=== PATIENT | male | born 1970 | race Caucasian/White ===

== ENCOUNTER → 2018-04-01 | Outpatient (CLI) | payer MEDICAID, OTHER ==
[2018-04-01 12:55] LABS: HEMATOCRIT 36.4 % (42.0-52.0); HEMOGLOBIN 11.6 g/dl (13.5-17.5); MEAN CORPUSCULAR HEMOGLOBIN 28.3 pg (27.0-33.0); MEAN CORPUSCULAR HGB CONC 31.9 g/dl (32.0-36.5); MEAN CORPUSCULAR VOLUME 88.8 fl (80.0-96.0); PLATELET COUNT, AUTOMATED 373 10^3/uL (150-450); WHITE BLOOD COUNT 9.9 10^3/uL (4.0-10.0)
[2018-04-01 13:23] LABS: ALBUMIN 2.9 GM/DL (3.2-5.2); ALBUMIN/GLOBULIN RATIO 0.81 (1.00-1.93); ALKALINE PHOSPHATASE 99 U/L (45-117); ALT/SGPT 15 U/L (12-78); ANION GAP 5 MEQ/L (8-16); AST/SGOT 11 U/L (7-37); BILIRUBIN,TOTAL 0.1 MG/DL (0.2-1.0); BLOOD UREA NITROGEN 14 MG/DL (7-18); CALCIUM LEVEL 8.4 MG/DL (8.5-10.1); CARBON DIOXIDE LEVEL 32 MEQ/L (21-32); CHLORIDE LEVEL 103 MEQ/L (98-107); CREATININE FOR GFR 0.86 MG/DL (0.70-1.30); GLOMERULAR FILTRATION RATE > 60.0 (>60); GLUCOSE, FASTING 72 MG/DL (70-100); POTASSIUM SERUM 4.7 MEQ/L (3.5-5.1); SODIUM LEVEL 140 MEQ/L (136-145); TOTAL PROTEIN 6.5 GM/DL (6.4-8.2)
[2018-04-01 13:39] LABS: HEPATITIS B SURFACE ANTIGEN NEGATIVE (NEGATIVE)
[2018-04-01 14:07] LABS: HEPATITIS C VIRUS ABY INDEX 0.1 INDEX (<0.8); HIV 1&2 SCREEN CENTAUR NEGATIVE (NEGATIVE)
[2018-04-01 14:19] LABS: CHLAMYDIA DNA AMPLIFICATION NEGATIVE (NEGATIVE); GC DNA AMPLIFICATION NEGATIVE (NEGATIVE)
== END ==
LOC: M EKG 11:56
DX: F11.20 Opioid dependence, uncomplicated (principal); R00.1 Bradycardia, unspecified
CPT/HCPCS: 93005

== ENCOUNTER 2018-06-14 11:02 | Emergency (ER) | payer MEDICAID, OTHER ==
[~2018-06-14] VITALS: Ht 185.4 cm; Wt 89.1 kg
[~2018-06-14 11:02] MED LIST: ABIL1TAB11 PO; AMIT10TA PO; ARIP1TAB6 PO; ATOR1TAB21 PO; AVEL1TAB3 PO; BUSP1TAB PO; CLOB0.0548 TOP; EFFE150C2 PO; ERYT25CAEC PO; FAMO1TAB25 PO; FAMO20TA PO; HYDR25TAB PO; IBUP80TA PO; LEVA750T7 PO; LEVO500T3 PO; LISI-538 PO; LISI40TA PO; LYRI150C PO; LYRI200C PO; METH10TA2 PO; METO25TAB PO; NEUR800T PO; NICO2GUM8 PO; PEPC1TAB5 PO; PRIL20CA9 PO; PROZ20CA11 PO; REME30TA PO; RISP1TAB42 PO; SERT-138 PO; SUBO2MIS SL; SUBO8MIS SL; TRAZ-160 PO; VENL150C43 PO; VENL75CA47 PO; ZEST1TAB7 PO; ZOFR4TAB14 SL
[2018-06-14] MEDS ORDERED: EFFE150C2 (11:26)
[2018-06-14] MEDS ORDERED: LISI40TA (11:26)
[2018-06-14] MEDS ORDERED: GABA800T4 (11:26)
[2018-06-14] MEDS ORDERED: GABAPENTIN 400 MG CAP PO ONE (13:00)
[2018-06-14] MEDS ORDERED: PREGABALIN 100 MG CAP (LYRICA) PO ONE (13:00)
[2018-06-14] MEDS ORDERED: LYRI200C PO (13:07)
[2018-06-14] MEDS ORDERED: GABA800T4 PO (13:07)
[2018-06-14 13:24] VITALS: BP 119/80
== END 2018-06-14 13:24 | disposition home or self-care (01) ==
LOC: M ED 11:02
DX: Z76.0 Encounter for issue of repeat prescription (principal); M79.7 Fibromyalgia; I10 Essential (primary) hypertension; E78.00 Pure hypercholesterolemia, unspecified; M19.90 Unspecified osteoarthritis, unspecified site; Z79.899 Other long term (current) drug therapy; F19.10 Other psychoactive substance abuse, uncomplicated; F10.10 Alcohol abuse, uncomplicated

== ENCOUNTER 2018-06-21 10:28 | Emergency (ER) | payer OTHER ==
[~2018-06-21] VITALS: Ht 185.4 cm; Wt 86.4 kg
[2018-06-21 10:28] VITALS: BP 138/83
[~2018-06-21 10:28] MED LIST changes: +EFFE150C2; +GABA800T4; +GABA800T4 PO; +LISI40TA
[2018-06-21] MEDS ORDERED: GABA800T4 PO (11:22)
[2018-06-21] MEDS ORDERED: LYRI200C PO (11:22)
[2018-06-21] MEDS ORDERED: EFFE150C2 PO (11:22)
== END 2018-06-21 11:26 | disposition home or self-care (01) ==
LOC: M ED 10:28
DX: M79.7 Fibromyalgia (principal); Z76.0 Encounter for issue of repeat prescription

== ENCOUNTER 2018-06-28 11:19 | Emergency (ER) | payer OTHER ==
[~2018-06-28] VITALS: Ht 185.4 cm; Wt 86.4 kg
[2018-06-28] MEDS ORDERED: LYRI200C PO (12:40)
[2018-06-28] MEDS ORDERED: EFFE150C2 PO (12:40)
[2018-06-28] MEDS ORDERED: NEUR800T PO (12:40)
[2018-06-28 12:53] VITALS: BP 103/69
== END 2018-06-28 12:55 | disposition home or self-care (01) ==
LOC: M ED 11:19
DX: Z76.0 Encounter for issue of repeat prescription (principal); F32.9 Major depressive disorder, single episode, unspecified; F41.9 Anxiety disorder, unspecified; M79.7 Fibromyalgia; M19.90 Unspecified osteoarthritis, unspecified site; I10 Essential (primary) hypertension; M79.601 Pain in right arm; G89.29 Other chronic pain; F17.200 Nicotine dependence, unspecified, uncomplicated; Z79.899 Other long term (current) drug therapy

== ENCOUNTER 2018-07-27 22:34 | Emergency (ER) | payer OTHER ==
[~2018-07-27] VITALS: Ht 185.4 cm; Wt 89.1 kg
[2018-07-27] MEDS ORDERED: KETOROLAC TROMETHAMINE 10 MG TAB PO ONE (23:15)
[2018-07-28] MEDS ORDERED: KETO10TAB PO (00:08)
[2018-07-28 00:32] VITALS: BP 108/72
--- NOTE | 2018-07-28 01:27 | REP ---
Clinical: Trauma/fall . Technique: AP, lateral, bilateral oblique, and coned-down views. Findings: Alignment and lordosis is maintained. The vertebral bodies including transverse process and spinous processes are intact and normal. There is no evidence for acute fracture / compression injury or subluxation. No evidence for spondylolysis or spondylolisthesis. Mild degenerative changes include subtle endplate sclerosis and minimal anterior osteophyte formation. Mild disc space narrowing at L5-S1 is also suggested. Impression: No acute fracture / compression injury or subluxation. Mild degenerative changes. Electronically Signed by Niranjan Pugh MD 07/28/2018 01:18 A
--- NOTE | 2018-07-28 01:30 | REP ---
Clinical: Trauma. Technique: Frontal view of the chest with four views of the right hemithorax. Findings: Frontal view of the chest demonstrates no acute cardiopulmonary process. Multiple views of the right hemithorax demonstrates no obvious acute rib fracture or pathology. Impression: No obvious right rib fracture. Electronically Signed by Niranjan Pugh MD 07/28/2018 01:22 A
== END 2018-07-28 00:40 | disposition home or self-care (01) ==
LOC: M ED 22:34
DX: S20.221A Contusion of right back wall of thorax, initial encounter (principal); W18.2XXA Fall in (into) shower or empty bathtub, initial encounter; Y92.012 Bathroom of single-family (private) house as the place of occurrence of the external cause; I10 Essential (primary) hypertension; F33.9 Major depressive disorder, recurrent, unspecified; F41.9 Anxiety disorder, unspecified; M19.90 Unspecified osteoarthritis, unspecified site; K21.9 Gastro-esophageal reflux disease without esophagitis; Z79.899 Other long term (current) drug therapy; Z79.890 Hormone replacement therapy

== ENCOUNTER 2018-10-20 11:14 | Emergency (ER) | payer OTHER ==
[~2018-10-20] VITALS: Ht 185.4 cm; Wt 90.9 kg
[~2018-10-20 11:14] MED LIST changes: +AZIT-12 PO; +HYDR-2541 PO; -HYDR25TAB PO; +KETO10TAB PO; +METO-346 PO; +METO1TAB63 PO; -METO25TAB PO; +PRED20TA PO; -TRAZ-160 PO; +TRAZ-252 PO
[2018-10-20 11:15] VITALS: BP 122/75
[2018-10-20] MEDS ORDERED: DULO1CAP2 PO (11:29)
[2018-10-20] MEDS ORDERED: RISP0.5T3 (11:29)
[2018-10-20] MEDS ORDERED: LYRI150C PO (11:29)
[2018-10-20] MEDS ORDERED: PREG100CA PO (11:32)
== END 2018-10-20 11:40 | disposition home or self-care (01) ==
LOC: M ED 11:14
DX: Z76.0 Encounter for issue of repeat prescription (principal); G89.29 Other chronic pain; I10 Essential (primary) hypertension; K21.9 Gastro-esophageal reflux disease without esophagitis; M79.7 Fibromyalgia; Z79.899 Other long term (current) drug therapy; Z79.891 Long term (current) use of opiate analgesic

== ENCOUNTER 2018-11-06 12:42 | Inpatient (IN) | payer OTHER ==
[~2018-11-06] VITALS: Ht 185.4 cm; Wt 95.0 kg
[~2018-11-06 12:42] MED LIST changes: +DULO1CAP2 PO; -EFFE150C2; -LISI40TA; +PREG100CA PO; +RISP0.5T3
[2018-11-06 13:23] LABS: HEMATOCRIT 39.6 % (42.0-52.0); HEMOGLOBIN 12.7 g/dl (13.5-17.5); MEAN CORPUSCULAR HEMOGLOBIN 27.8 pg (27.0-33.0); MEAN CORPUSCULAR HGB CONC 32.1 g/dl (32.0-36.5); MEAN CORPUSCULAR VOLUME 86.7 fl (80.0-96.0); PLATELET COUNT, AUTOMATED 380 10^3/uL (150-450); RED BLOOD COUNT 4.57 10^6/uL (4.30-6.10); WHITE BLOOD COUNT 6.6 10^3/uL (4.0-10.0)
[2018-11-06 13:45] LABS: AMPHETAMINES LEVEL URINE NEGATIVE (NEGATIVE); BARBITURATES URINE NEGATIVE (NEGATIVE); BENZODIAZEPINES URINE NEGATIVE (NEGATIVE); CANNABINOIDS URINE POSITIVE (NEGATIVE); COCAINE METABOLITE URINE POSITIVE (NEGATIVE); METHADONE URINE POSITIVE (NEGATIVE); OPIATES URINE NEGATIVE (NEGATIVE); PHENCYCLIDINE URINE NEGATIVE (NEGATIVE)
[2018-11-06 13:55] LABS: ACETAMINOPHEN LEVEL < 2.0 UG/ML (10.0-30.0); ALBUMIN 3.2 GM/DL (3.2-5.2); ALT/SGPT 19 U/L (12-78); BILIRUBIN,DIRECT 0.1 MG/DL (0.0-0.2); BILIRUBIN,TOTAL 0.4 MG/DL (0.2-1.0); BLOOD UREA NITROGEN 12 MG/DL (7-18); CALCIUM LEVEL 8.2 MG/DL (8.5-10.1); CARBON DIOXIDE LEVEL 29 MEQ/L (21-32); CHLORIDE LEVEL 107 MEQ/L (98-107); CREATININE FOR GFR 0.94 MG/DL (0.70-1.30); ETHYL ALCOHOL (ETHANOL) < 0.003 % (0.000-0.010); GLOMERULAR FILTRATION RATE > 60.0 (>60); GLUCOSE, FASTING 90 MG/DL (70-100); POTASSIUM SERUM 4.2 MEQ/L (3.5-5.1); SALICYLATE LEVEL 3.4 MG/DL (5.0-30.0); SODIUM LEVEL 141 MEQ/L (136-145); THYROID STIMULATING HORMONE 0.297 uIU/ML (0.358-3.740); TOTAL PROTEIN 6.8 GM/DL (6.4-8.2)
[2018-11-06] MEDS ORDERED: PREGABALIN 75 MG CAP(LYRICA) PO ONE ×2 (14:00→21:00)
[2018-11-06] MEDS ORDERED: GABAPENTIN 400 MG CAP PO ONE (14:00)
[2018-11-06] MEDS ORDERED: MAALOX 30 ML SUSP *UDC PO PRN ×2 (14:30→14:45)
[2018-11-06] MEDS ORDERED: traZODone 50 MG TAB PO PRN ×2 (14:30→14:45)
[2018-11-06] MEDS ORDERED: MOM 30ML SUSPENSION UDC PO PRN ×2 (14:30→14:45)
[2018-11-06] MEDS ORDERED: ACETAMINOPHEN TAB 650MG DOSE (2X325MG) PO PRN (14:45)
[2018-11-06] MEDS ORDERED: GABA600T4 PO (15:11)
[2018-11-06] MEDS ORDERED: METH10CO PO (15:11)
[2018-11-06] MEDS: NICOTINE 21MG/24HR 1 EA TRANSDERMAL TD SCH (18:07)
[2018-11-06] MEDS: GABAPENTIN 300 MG CAP PO SCH (20:01)
[2018-11-06] MEDS: ACETAMINOPHEN TAB 650MG DOSE (2X325MG) PO PRN (21:42)
[2018-11-07 06:56] VITALS: BP 104/78
[2018-11-07] MEDS: NICOTINE 21MG/24HR 1 EA TRANSDERMAL TD SCH (08:18)
[2018-11-07] MEDS: VENLAFAXINE **XR** 75MG CAPSULE PO SCH (08:18)
[2018-11-07] MEDS: LISINOPRIL 40 MG TAB PO SCH (08:18)
[2018-11-07] MEDS: GABAPENTIN 300 MG CAP PO SCH ×3 (08:18→20:27)
[2018-11-07] MEDS ORDERED: PREGABALIN 75 MG CAP(LYRICA) PO SCH ×2 (09:00→18:00)
[2018-11-07] MEDS: METHADONE 10 MG TAB (S0109) PO SCH (11:38)
--- NOTE | 2018-11-07 13:03 | HPEPDOC ---
General Date of Admission Nov 06, 2018 at 14:30 Date of Service: Nov 07, 2018 Attending Physician: FARA GARDNER MD Chief Complaint The patient is a 47-year-old male admitted with a reason for visit of Unspecified Depressive Disorder. Source: Patient Exam Limitations: No limitations Timing/Duration: Other Severity: Other (not applicable) Associated Symptoms: Other History of Present Illness This is a 47 years old white male with past medical history of fibromyalgia, osteoarthritis, degenerative joint disease of upper spine, hypertension, admitted to inpatient medical health unit with chief complaints of severe depression, suicidal ideations. Patient offers no medical complaints. No chest pain, no shortness of breath, no nausea, vomiting, no diarrhea no respiratory distress. No urinary problems, etc. Home Medications Scheduled Gabapentin (Gabapentin) 600 Mg Tablet, 600 MG PO TID, (Reported) Lisinopril (Lisinopril) 40 Mg Tab, 40 MG PO DAILY, (Reported) Methadone HCl (Methadone HCl) 10 Mg/1 Ml Oral.conc, 175 MG PO DAILY, (Reported) Pregabalin (Lyrica) 150 Mg Capsule, 150 MG PO TID, (Reported) Venlafaxine HCl (Effexor Xr) 150 Mg Cap, 300 MG PO DAILY, (Reported) Allergies Coded Allergies: No Known Drug Allergies (Verified Allergy, Unknown, 10/10/18) Past Medical History Medical History Fibromyalgia, osteoarthritis, DJD of spine, hypertension Surgical History Left inguinal hernia repair, and right carpal tunnel syndrome repair Family History Significant Family History: Other (. Mother of heart attack in 50s) Social History * Smoker: less than 1 pack/day Alcohol: other (stopped drinking alcohol some time ago) Drugs: cocaine, heroin A-FIB/CHADSVASC A-FIB History Current/History of A-Fib/PAF?: No Review of Systems Constitutional: Denies: Chills, Fever, Malaise, Night Sweats, Weakness, Fatigue, Weight Loss, Lethargy, Other Eyes: Denies: Pain, Vision change, Conjunctivae inflammation, Eyelid inflammation, Redness, Other ENT: Denies: Head Aches, Ear Pain, Dysphagia, Sinus Congestion, Post Nasal Drip, Sore Throat, Epistaxis, Other Symptoms Skin: Denies: Rash, Lesions, Jaundice, Bruising, Itching, Dry, Breakdown, Nail Changes, Other Pulmonary: Denies: Dyspnea, Cough, Pleuritic Chest Pain, Other Symptoms Cardiovascular: Denies: Chest Pain, Palpitations, Orthopnea, Paroxysmal Noc. Dyspnea, Edema, Lt Headedness, Other Symptoms Gastrointestinal: Denies: Nausea, Vomiting, Abdominal Pain, Diarrhea, Constipation, Melena, Hematochezia, Other Symptoms Genitourinary: Denies: Dysuria, Frequency, Incontinence, Hematuria, Retention, Other Symptoms Hematologic: Denies: Bruising, Bleeding Excessively, Petecchia, Purpura, Enlarged Lymph Nodes, Other Hematologic Endocrine: Denies: Polydipsia, Polyphagia, Polyuria, Heat Intolerance, Cold Intolerance, Other Endocrine Sx Musculoskeletal: Denies: Neck Pain, Back Pain, Shoulder Pain, Arm Pain, Hand Pain, Leg Pain, Foot Pain, Joint Pain, Muscle Pain, Spasms, Other Symptoms Neurological: Denies: Weakness, Numbness, Incoordination, Change in speech, Confusion, Seizures, Other Symptoms Physical Examination General Exam: Positive: Alert, Cooperative Eye Exam: Positive: PERRLA, Conjunctiva & lids normal ENT Exam: Positive: Atraumatic, Mucous membr. moist/pink Neck Exam: Positive: Supple Chest Exam: Positive: Normal air movement Heart Exam: Positive: Rate Normal, Normal S1, Normal S2 Abdomen Exam: Positive: Normal bowel sounds, Soft Extremity Exam: Positive: Normal pulses Skin Exam: Positive: Nl turgor and temperature Neuro Exam: Positive: Normal Gait, Normal Speech, Strength at 5/5 X4 ext, Normal Tone, Cranial Nerves 3-12 NL Psych Exam: Positive: Oriented x 3, Other (. Depressed mood) Vital Signs Vital Signs Date Time Temp Pulse Resp B/P (MAP) Pulse Ox O2 Delivery O2 Flow Rate FiO2 11/07/18 06:56 98.1 72 12 104/78 (87) 11/06/18 16:07 100 Room Air Laboratory Data Labs 24H Laboratory Tests 2 11/06/18 13:08: Nucleated Red Blood Cells % (auto) 0.0, Anion Gap 5L, Glomerular Filtration Rate > 60.0, Calcium Level 8.2L, Aspartate Amino Transf (AST/SGOT) 25, Alanine Aminotransferase (ALT/SGPT) 19, Alkaline Phosphatase 97, Total Bilirubin 0.4, Direct Bilirubin 0.1, Total Protein 6.8, Albumin 3.2, Albumin/Globulin Ratio 0.89L, Thyroid Stimulating Hormone (TSH) 0.297L, Salicylates Level 3.4L, Urine A mphetamines Screen NEGATIVE, Urine Benzodiazepines Screen NEGATIVE, Urine Opiates Screen NEGATIVE, Urine Methadone Screen POSITIVEH, Acetaminophen Level < 2.0L, Urine Barbiturates Screen NEGATIVE, Urine Phencyclidine Screen NEGATIVE, Urine Cocaine Metabolite Screen POSITIVEH, Urine Cannabinoids Screen POSITIVEH, Ethyl Alcohol Level < 0.003 CBC/BMP Laboratory Tests 11/06/18 13:08 Red Blood Count 4.57, Mean Corpuscular Volume 86.7, Mean Corpuscular Hemoglobin 27.8, Mean Corpuscular Hemoglobin Concent 32.1, Red Cell Distribution Width 13.7 Problems (1) Suicidal ideation Status: Acute Problem Text: [facility] suicidal ideations History of severe depressions and feels guilty about not caring taken care of his son was 14 years old Further treatment and management of depression as per psychiatry Will recommend baseline EKG as best as patient is on methadone to monitor QTc interval Toxicology positive for methadone, cocaine and canniboids (2) Depression Status: Acute Problem Text: As above (3) Fibromyalgia Status: Chronic Problem Text: Clinically stable, asymptomatic in no apparent distress Continue close observation All the lab work is essentially within normal limits (4) Osteoarthritis Status: Acute Problem Text: Stable Plan / VTE VTE Prophylaxis Ordered?: No VTE Exclusion Mechanical Proph: Low Risk for VTE FARA GARDNER MD Nov 07, 2018 13:03
[2018-11-07] MEDS: PREGABALIN 75 MG CAP(LYRICA) PO SCH ×2 (15:49→20:27)
[2018-11-07 18:21] VITALS: BP 113/64
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
[2018-11-07] MEDS: PRAZOSIN 1 MG CAP PO SCH (20:28)
[2018-11-08] MEDS: ACETAMINOPHEN TAB 650MG DOSE (2X325MG) PO PRN (05:42)
[2018-11-08] MEDS: GABAPENTIN 300 MG CAP PO SCH ×3 (06:04→17:39)
[2018-11-08] MEDS: PREGABALIN 75 MG CAP(LYRICA) PO SCH ×3 (06:04→17:39)
[2018-11-08 06:37] VITALS: BP 120/70
--- NOTE | 2018-11-08 07:49 | ECGEPIP ---
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
[2018-11-08] MEDS: METHADONE 10 MG TAB (S0109) PO SCH (09:51)
[2018-11-08] MEDS: LISINOPRIL 40 MG TAB PO SCH (09:55)
[2018-11-08] MEDS: NICOTINE 21MG/24HR 1 EA TRANSDERMAL TD SCH (09:55)
[2018-11-08] MEDS: VENLAFAXINE **XR** 75MG CAPSULE PO SCH (09:56)
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
--- NOTE | 2018-11-08 17:12 | MHIPNPDOC ---
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 Patient reported symptoms consistent for quite some time, but no recent treatment prior to his admission. Interval History The patient is met with today. He describes the Wellbutrin as fairly helpful for soothing his depression and that he's become much more active and engaged with others. He was found playing cards with others in the break room, attending groups regularly, exhibiting much social and interactive affect. He feels confident about returning home soon. He reports no side effects with the Wellbutrin. Review Of Systems patient denies any palpitations, chest pain, agitation, anxiety, tremors or other side effects related to the Wellbutrin. Psychotherapy Psychoeducation related to depression as well as depression treatment focusing on patient's strengths, 16 minutes of psychotherapy completed in a supportive manner with beneficial result. Vital Signs Reviewed. Mental Status Examination General: Well dressed with good hygiene Speech: Spontaneous and fluid Thought processes: Linear and logical MSK: Smooth and coordinated gait, no signs of tremors or involuntary orofacial movements Thought content: Future orientated Abstract reasoning, and computation: Intact Description of associations: Intact Description of abnormal or psychotic thoughts: Denies any suicidal or homicidal ideation. Denies any auditory or visual hallucinations. Does not appear to be responding to internal stimuli. Does not appear to be endorsing any bizarre or paranoid ideation. Judgment: fair Insight: fair Orientation: Alert and orientated 3 Cognition: Grossly normal Recent and remote memory: Intact Attention span and concentration: Intact Fund of knowledge: Adequate Mood: "okay" Affect: Euthymic with a full range Diagnoses MDD,moderate,recurrent, in partial remission: improving Assessment and Plan The patient a 23 year old man with a history of depression presents with suicidal thoughts and a plan to shoot himself. Will discontinue sertraline at this time as it appears ineffective. We'll increase Wellbutrin to 300 mg daily. The patient will likely be discharged tomorrow pending improvement of his condition as his suicidal ideation has resolved and his depression has been fairly well treated. Chain of command meeting will commence tomorrow. Disposition The patient will need a further inpatient admission stay overnight in order to ensure a smooth transition with chain of command meeting and disposition planning at this time. Time Spent 30 minutes total [id number] time, 16 minutes psychotherapy time. Vital Signs Vital Signs Date Time Temp Pulse Resp B/P (MAP) Pulse Ox O2 Delivery O2 Flow Rate FiO2 11/08/18 06:37 98.3 60 16 120/70 (87) 11/06/18 16:07 100 Room Air Current Medications Current Medications Acetaminophen (Tylenol Tab) 650 mg Q6HP PRN PO HEADACHE or DISCOMFORT Last administered on 11/08/18at 05:42; Start 11/06/18 at 14:30 Acetaminophen (Tylenol Tab) 650 mg Q6HP PRN PO HEADACHE or DISCOMFORT; Start 11/06/18 at 14:45; Status UNV Al Hydrox/Mg Hydrox/Simethicone (Mylanta) 30 ml Q4HP PRN PO HEARTBURN /INDIGESTION; Start 11/06/18 at 14:30 Al Hydrox/Mg Hydrox/Simethicone (Mylanta) 30 ml Q4HP PRN PO HEARTBURN/INDIGESTION; Start 11/06/18 at 14:45; Status UNV Gabapentin (Neurontin) 600 mg TID PO Last administered on 11/08/18at 06:04; Start 11/06/18 at 21:00; Stop 11/08/18 at 14:16; Status DC Gabapentin (Neurontin) 600 mg TID@0700,1300,1800 PO Last administered on 11/08/18at 14:20; Start 11/08/18 at 13:00 Home Med (Med Rec Complete!) ASDIRECTED XX ; Start 11/06/18 at 15:15; Stop 11/06/18 at 15:27; Status DC Lisinopril (Prinivil) 40 mg DAILY PO Last administered on 11/08/18at 09:55; Start 11/07/18 at 09:00 Magnesium Hydroxide (Milk Of Magnesia) 30 ml DAILYPRN PRN PO CONSTIPATION; Start 11/06/18 at 14:30 Magnesium Hydroxide (Milk Of Magnesia) 30 ml DAILYPRN PRN PO CONSTIPATION; Start 11/06/18 at 14:45; Status UNV Methadone HCl (Dolophine) 175 mg DAILY PO Last administered on 11/08/18at 09:51; Start 11/07/18 at 09:00 Nicotine (Nicoderm Cq 21mg) 1 patch DAILY TD Last administered on 11/08/18 09:55; Start 11/06/18 at 09:00 Prazosin HCl (Minipress) 1 mg QHS PO Last administered on 11/07/18at 20:28; Start 11/07/18 at 21:00 Pregabalin (Lyrica) 150 mg BID@1600,2100 PO Last administered on 11/07/18at 20:27; Start 11/07/18 at 16:00; Stop 11/07/18 at 21:01; Status DC Pregabalin (Lyrica) 150 mg TID PO Last administered on 11/07/18at 10:33; Start 11/07/18 at 09:00; Stop 11/07/18 at 15:16; Status DC Pregabalin (Lyrica) 150 mg TID@0700,1300,1800 PO ; Start 11/07/18 at 18:00; Status Cancel Pregabalin (Lyrica) 150 mg TID@0700,1300,1800 PO Last administered on 11/08/18at 12:59; Start 11/08/18 at 07:00 Trazodone HCl (Desyrel) 50 mg QHSP PRN PO INSOMNIA Last administered on 11/06/18at 20:01; Start 11/06/18 at 14:30; Stop 11/07/18 at 19:14; Status DC Trazodone HCl (Desyrel) 50 mg QHSP PRN PO INSOMNIA; Start 11/06/18 at 14:45; Status UNV Venlafaxine HCl (Effexor Xr) 300 mg DAILY PO Last administered on 11/08/18at 09:56; Start 11/07/18 at 09:00 Allergies Coded Allergies: No Known Drug Allergies (Verified Allergy, Unknown, 10/10/18) ADDI ESCAMILLA DO Nov 08, 2018 17:12
[2018-11-08 18:00] VITALS: BP 109/53
[2018-11-08 20:09] VITALS: BP 122/79
[2018-11-08] MEDS: PRAZOSIN 1 MG CAP PO SCH (20:09)
[2018-11-09 06:00] VITALS: BP 108/60
[2018-11-09] MEDS: GABAPENTIN 300 MG CAP PO SCH ×2 (06:00→12:58)
[2018-11-09] MEDS: PREGABALIN 75 MG CAP(LYRICA) PO SCH ×2 (06:00→12:58)
[2018-11-09] MEDS: METHADONE 10 MG TAB (S0109) PO SCH (08:09)
[2018-11-09] MEDS: VENLAFAXINE **XR** 75MG CAPSULE PO SCH (08:12)
[2018-11-09] MEDS: LISINOPRIL 40 MG TAB PO SCH (08:13)
[2018-11-09] MEDS: NICOTINE 21MG/24HR 1 EA TRANSDERMAL TD SCH (08:13)
[2018-11-09] MEDS ORDERED: GABA600T4 PO (10:55)
[2018-11-09] MEDS ORDERED: LYRI150C PO (10:55)
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
== END 2018-11-09 13:50 | disposition home or self-care (01) | DRG 755 ==
LOC: M ED 12:42 → M ED INP 14:30 → M PSY 16:23
PROVIDERS: ADMIT Psychiatry & Neurology Psychiatry; ATTEND Psychiatry & Neurology Addiction Medicine
DX: F43.10 Post-traumatic stress disorder, unspecified (principal); I10 Essential (primary) hypertension; R45.851 Suicidal ideations; F12.90 Cannabis use, unspecified, uncomplicated; F17.200 Nicotine dependence, unspecified, uncomplicated; F14.90 Cocaine use, unspecified, uncomplicated; Z79.899 Other long term (current) drug therapy; M79.7 Fibromyalgia; M19.90 Unspecified osteoarthritis, unspecified site

== ENCOUNTER 2018-11-10 08:20 | Emergency (ER) | payer OTHER ==
[~2018-11-10] VITALS: Ht 185.4 cm; Wt 88.0 kg
[2018-11-10 08:20] VITALS: BP 115/75
[~2018-11-10 08:20] MED LIST changes: -DULO1CAP2 PO; +DULO1CAP5 PO; +GABA600T4 PO; +METH10CO PO
== END 2018-11-10 08:58 | disposition home or self-care (01) ==
LOC: M ED 08:20
DX: Z76.0 Encounter for issue of repeat prescription (principal); Z79.899 Other long term (current) drug therapy

== ENCOUNTER 2018-11-14 18:22 | Emergency (ER) | payer OTHER ==
[~2018-11-14] VITALS: Ht 185.4 cm; Wt 91.8 kg
[2018-11-14] MEDS ORDERED: LYRI150C PO (21:56)
[2018-11-14 21:59] VITALS: BP 112/68
== END 2018-11-14 22:05 | disposition home or self-care (01) ==
LOC: M ED 18:22
DX: Z76.0 Encounter for issue of repeat prescription (principal); Z72.0 Tobacco use; Z79.899 Other long term (current) drug therapy

== ENCOUNTER 2019-01-04 04:46 | Inpatient (IN) | payer MEDICAID, OTHER ==
[~2019-01-04] VITALS: Ht 185.4 cm; Wt 95.3 kg
[2019-01-04 05:44] LABS: HEMATOCRIT 37.7 % (42.0-52.0); HEMOGLOBIN 12.5 g/dl (13.5-17.5); MEAN CORPUSCULAR HEMOGLOBIN 27.8 pg (27.0-33.0); MEAN CORPUSCULAR HGB CONC 33.2 g/dl (32.0-36.5); PLATELET COUNT, AUTOMATED 273 10^3/uL (150-450); RED BLOOD COUNT 4.49 10^6/uL (4.30-6.10); WHITE BLOOD COUNT 12.4 10^3/uL (4.0-10.0)
--- NOTE | 2019-01-04 05:45 | ECGEPIP ---
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
[2019-01-04 06:04] LABS: AMPHETAMINES LEVEL URINE NEGATIVE (NEGATIVE); BARBITURATES URINE NEGATIVE (NEGATIVE); BENZODIAZEPINES URINE NEGATIVE (NEGATIVE); CANNABINOIDS URINE NEGATIVE (NEGATIVE); COCAINE METABOLITE URINE POSITIVE (NEGATIVE); METHADONE URINE POSITIVE (NEGATIVE); OPIATES URINE NEGATIVE (NEGATIVE); PHENCYCLIDINE URINE NEGATIVE (NEGATIVE)
[2019-01-04 06:12] LABS: ACETAMINOPHEN LEVEL < 2.0 UG/ML (10.0-30.0); ALBUMIN 3.5 GM/DL (3.2-5.2); ALT/SGPT 18 U/L (12-78); BILIRUBIN,DIRECT 0.1 MG/DL (0.0-0.2); BILIRUBIN,TOTAL 0.5 MG/DL (0.2-1.0); BLOOD UREA NITROGEN 20 MG/DL (7-18); CALCIUM LEVEL 8.7 MG/DL (8.5-10.1); CARBON DIOXIDE LEVEL 25 MEQ/L (21-32); CHLORIDE LEVEL 107 MEQ/L (98-107); CREATININE FOR GFR 1.19 MG/DL (0.70-1.30); ETHYL ALCOHOL (ETHANOL) < 0.003 % (0.000-0.010); GLOMERULAR FILTRATION RATE > 60.0 (>56); GLUCOSE, FASTING 94 MG/DL (70-100); POTASSIUM SERUM 4.1 MEQ/L (3.5-5.1); SALICYLATE LEVEL 3.7 MG/DL (5.0-30.0); SODIUM LEVEL 140 MEQ/L (136-145); THYROID STIMULATING HORMONE 0.819 uIU/ML (0.358-3.740); TOTAL PROTEIN 7.3 GM/DL (6.4-8.2)
[2019-01-04] MEDS ORDERED: GABA600T4 PO (06:26)
[2019-01-04] MEDS ORDERED: TRAZ1TAB10 PO (06:26)
[2019-01-04] MEDS ORDERED: DOCU100C16 PO (06:26)
[2019-01-04] MEDS ORDERED: PRAZ1CAP PO (06:26)
[2019-01-04] MEDS ORDERED: [UNRECOGNIZED DRUG - CODE] MT (06:26)
[2019-01-04] MEDS ORDERED: PREG100CA PO (06:26)
[2019-01-04] MEDS ORDERED: RISP0.5T3 PO (06:26)
[2019-01-04] MEDS ORDERED: NARC1SPR (06:26)
[2019-01-04] MEDS: GABAPENTIN 300 MG CAP PO SCH ×3 (08:47→21:37)
[2019-01-04] MEDS ORDERED: PREGABALIN 100 MG CAP (LYRICA) PO SCH (09:00)
[2019-01-04] MEDS ORDERED: risperiDONE 0.5 MG TAB PO SCH (09:00)
[2019-01-04] MEDS ORDERED: LISINOPRIL 40 MG TAB PO SCH (09:00)
[2019-01-04] MEDS ORDERED: METHADONE 10 MG TAB (S0109) PO SCH (09:00)
[2019-01-04] MEDS ORDERED: VENLAFAXINE **XR** 75MG CAPSULE PO SCH (09:00)
[2019-01-04] MEDS ORDERED: DOCUSATE SODIUM 100 MG CAP PO PRN (17:30)
[2019-01-04] MEDS ORDERED: MOM 30ML SUSPENSION UDC PO PRN (17:30)
[2019-01-04] MEDS ORDERED: MAALOX 30 ML SUSP *UDC PO PRN (17:30)
[2019-01-04 19:52] VITALS: BP 118/73
[2019-01-04] MEDS ORDERED: PRAZOSIN 1 MG CAP PO SCH (21:00)
[2019-01-04 21:37] VITALS: BP 115/76
[2019-01-04] MEDS: risperiDONE 0.5 MG TAB PO SCH (21:37)
[2019-01-04] MEDS: PREGABALIN 100 MG CAP (LYRICA) PO SCH (21:37)
[2019-01-04] MEDS: traZODone 50 MG TAB PO PRN (21:37)
[2019-01-04] MEDS: PRAZOSIN 1 MG CAP PO SCH (21:37)
[2019-01-05 06:48] VITALS: BP 145/80
[2019-01-05] MEDS: NICOTINE 21MG/24HR 1 EA TRANSDERMAL TD SCH (08:24)
[2019-01-05] MEDS: PREGABALIN 100 MG CAP (LYRICA) PO SCH ×2 (08:24→13:45)
[2019-01-05] MEDS: risperiDONE 0.5 MG TAB PO SCH ×2 (08:24→20:05)
[2019-01-05] MEDS: LISINOPRIL 40 MG TAB PO SCH (08:25)
[2019-01-05] MEDS: GABAPENTIN 300 MG CAP PO SCH ×3 (08:25→17:46)
[2019-01-05] MEDS: VENLAFAXINE **XR** 75MG CAPSULE PO SCH (08:25)
[2019-01-05] MEDS: METHADONE 10 MG TAB (S0109) PO SCH (08:25)
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
[2019-01-05] MEDS: ACETAMINOPHEN TAB 650MG DOSE (2X325MG) PO PRN (17:47)
[2019-01-05 18:00] VITALS: BP 108/62
[2019-01-05] MEDS: PRAZOSIN 1 MG CAP PO SCH (20:04)
[2019-01-05] MEDS: traZODone 50 MG TAB PO PRN (20:05)
--- NOTE | 2019-01-05 21:16 | HPE ---
DATE OF ADMISSION: 01/05/2019 HISTORY OF PRESENT ILLNESS: This is a 48-year-old male with past medical history significant for chronic posttraumatic stress disorder (PTSD), opioid, cocaine, and tobacco abuse, suicidal ideation, severe depression, admitted to the inpatient mental health unit. Hospitalist service was consulted for management of chronic medical issues. Patient complains of chronic joint pain, especially the shoulder and elbows, due to fibromyalgia. He denies any fevers or chills, changes in appetite, changes in weight, ear pain, sore throat, dysphagia, odynophagia, changes in weight, changes in appetite, nausea, vomiting, abdominal pain, diarrhea, shortness of breath, chest pain, pressure, or tightness, lightheadedness, or dizziness. Denies any dysuria, urgency, frequency, upper or lower extremity numbness or tingling sensation. Denies any changes in bowel or bladder habits. PAST MEDICAL HISTORY: 1. Fibromyalgia. 2. Anxiety. 3. Depression. 4. Suicidal ideation. 5. Opiate abuse. 6. Reflux. 7. Hypertension. 8. Osteoarthritis. 9. Anxiety. 10. Methadone per [facility] with history of polysubstance abuse. 11. Chronic neck and back pain 12. Dyslipidemia. PAST SURGICAL HISTORY: 1. Right carpal tunnel release. 2. Hernia repair. REVIEW OF SYSTEMS: Per history of present illness (HPI). A 12-point system otherwise negative. SOCIAL HISTORY: Polysubstance abuse. Quit alcohol in 2016. Patient had used heroin and cocaine in the past. Currently on methadone. He has been using crystal methamphetamine as well as other intravenous (IV) drugs. 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 He has always lived in [place]. FAMILY HISTORY: Mother with depression. PHYSICAL EXAMINATION: Temperature 98.7, pulse 73, respiratory rate 12, blood pressure 145/80, 97% on room air. Generally, patient is awake, alert, oriented times three, answering questions appropriately. No respiratory distress. No use of respiratory accessory muscles. Tongue is midline. No cervical lymphadenopathy or thyromegaly. No jugular venous distention. Patient has point tenderness at multiple joints in the shoulder, elbows, knees, wrist. Lungs are clear to auscultation. No wheezes, rales, or rhonchi. Air entry is equal bilaterally. Heart: S1, S2, sinus rhythm. No murmurs, rubs, or gallops. Abdomen is soft, nontender, nondistended. Positive bowel sounds times four quadrants. No rebound, guarding, or hepatosplenomegaly. Extremities have No clubbing, cyanosis, or any pitting edema. White count 12.4, hemoglobin 12.5, hematocrit 37.7, platelet count 273. Sodium 140, potassium 4.1, chloride 107, bicarbonate 25, BUN 20, creatinine 1.19, glucose of 94. Total bilirubin 0.5, direct bilirubin 0.1, AST 21, ALT 18, alkaline phosphatase 110. TSH 0.819. EKG 01/04/2019 at 5:05 a.m.: Sinus rhythm, ventricular rate of 80. Nonspecific T-wave abnormalities, similar to 11/07/2018. QRS duration 102, QT3 of 79, QTC 439. ASSESSMENT AND PLAN: 1. Severe depression with prior history of suicidal ideation. Defer management to psychiatrist. Baseline EKG has been reviewed. 2. Fibromyalgia. Outpatient followup. 3. Osteoarthritis, degenerative disc disease of the spine, on opioid narcotics. 4. Hypertension, currently stable, 105-118 systolic. No complaints of chest pain, pressure, tightness. Currently on lisinopril 40 mg daily. 5. Active tobacco abuse, on nicotine patch daily.
[2019-01-06 06:51] VITALS: BP 108/70
[2019-01-06] MEDS: GABAPENTIN 300 MG CAP PO SCH ×3 (07:59→18:01)
[2019-01-06] MEDS: PREGABALIN 100 MG CAP (LYRICA) PO SCH ×2 (08:00→14:00)
[2019-01-06] MEDS: VENLAFAXINE **XR** 75MG CAPSULE PO SCH (08:00)
[2019-01-06] MEDS: LISINOPRIL 40 MG TAB PO SCH (08:00)
[2019-01-06] MEDS: risperiDONE 0.5 MG TAB PO SCH ×2 (08:00→20:00)
[2019-01-06] MEDS: NICOTINE 21MG/24HR 1 EA TRANSDERMAL TD SCH (08:00)
[2019-01-06] MEDS: METHADONE 10 MG TAB (S0109) PO SCH (08:01)
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
[2019-01-06 17:59] VITALS: BP 107/55
[2019-01-06] MEDS: OLANZapine ORAL DISINTEGRATING TAB 5MG PO PRN (19:53)
[2019-01-06] MEDS: traZODone 50 MG TAB PO PRN (20:00)
[2019-01-07 07:23] VITALS: BP 110/74
[2019-01-07] MEDS: risperiDONE 0.5 MG TAB PO SCH ×2 (08:14→20:40)
[2019-01-07] MEDS: GABAPENTIN 300 MG CAP PO SCH ×3 (08:14→17:16)
[2019-01-07] MEDS: METHADONE 10 MG TAB (S0109) PO SCH (08:14)
[2019-01-07] MEDS: PREGABALIN 100 MG CAP (LYRICA) PO SCH ×2 (08:14→13:45)
[2019-01-07] MEDS: VENLAFAXINE **XR** 75MG CAPSULE PO SCH (08:15)
[2019-01-07] MEDS: LISINOPRIL 40 MG TAB PO SCH (08:15)
[2019-01-07] MEDS: NICOTINE 21MG/24HR 1 EA TRANSDERMAL TD SCH (08:15)
[2019-01-07] MEDS: OLANZapine ORAL DISINTEGRATING TAB 5MG PO PRN ×3 (08:19→22:11)
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
[2019-01-07 18:01] VITALS: BP 110/75
[2019-01-07] MEDS: traZODone 50 MG TAB PO PRN (20:40)
[2019-01-07] MEDS: ACETAMINOPHEN TAB 650MG DOSE (2X325MG) PO PRN (22:11)
[2019-01-08 06:21] VITALS: BP 95/68
[2019-01-08] MEDS: VENLAFAXINE **XR** 75MG CAPSULE PO SCH (08:10)
[2019-01-08] MEDS: NICOTINE 21MG/24HR 1 EA TRANSDERMAL TD SCH (08:10)
[2019-01-08] MEDS: LISINOPRIL 40 MG TAB PO SCH (08:10)
[2019-01-08] MEDS: GABAPENTIN 300 MG CAP PO SCH ×3 (08:10→17:43)
[2019-01-08] MEDS: risperiDONE 0.5 MG TAB PO SCH ×2 (08:10→20:02)
[2019-01-08] MEDS: PREGABALIN 100 MG CAP (LYRICA) PO SCH ×2 (08:10→13:15)
[2019-01-08] MEDS: METHADONE 10 MG TAB (S0109) PO SCH (08:13)
[2019-01-08] MEDS: OLANZapine ORAL DISINTEGRATING TAB 5MG PO PRN ×3 (10:00→22:11)
[2019-01-08 17:46] VITALS: BP 110/75
[2019-01-08] MEDS: traZODone 50 MG TAB PO PRN (20:02)
[2019-01-09 06:50] VITALS: BP 131/84
[2019-01-09] MEDS: OLANZapine ORAL DISINTEGRATING TAB 5MG PO PRN ×3 (07:03→17:11)
[2019-01-09] MEDS: GABAPENTIN 300 MG CAP PO SCH ×3 (08:29→17:11)
[2019-01-09] MEDS: NICOTINE 21MG/24HR 1 EA TRANSDERMAL TD SCH (08:29)
[2019-01-09] MEDS: risperiDONE 0.5 MG TAB PO SCH ×2 (08:29→21:20)
[2019-01-09] MEDS: PREGABALIN 100 MG CAP (LYRICA) PO SCH ×2 (08:29→13:46)
[2019-01-09] MEDS: VENLAFAXINE **XR** 75MG CAPSULE PO SCH (08:29)
[2019-01-09] MEDS: METHADONE 10 MG TAB (S0109) PO SCH (08:30)
[2019-01-09] MEDS: LISINOPRIL 40 MG TAB PO SCH (08:30)
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
[2019-01-09 17:06] VITALS: BP 128/84
[2019-01-10 06:57] VITALS: BP 150/85
[2019-01-10] MEDS: risperiDONE 0.5 MG TAB PO SCH (08:07)
[2019-01-10] MEDS: VENLAFAXINE **XR** 75MG CAPSULE PO SCH (08:07)
[2019-01-10] MEDS: PREGABALIN 100 MG CAP (LYRICA) PO SCH (08:07)
[2019-01-10] MEDS: GABAPENTIN 300 MG CAP PO SCH (08:07)
[2019-01-10] MEDS: METHADONE 10 MG TAB (S0109) PO SCH (08:07)
[2019-01-10] MEDS: LISINOPRIL 40 MG TAB PO SCH (08:07)
[2019-01-10] MEDS: NICOTINE 21MG/24HR 1 EA TRANSDERMAL TD SCH (08:08)
[2019-01-10] MEDS: OLANZapine ORAL DISINTEGRATING TAB 5MG PO PRN (09:41)
[2019-01-10] MEDS ORDERED: GABA600T4 PO (10:51)
[2019-01-10] MEDS ORDERED: PREG100CA PO (10:51)
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
== END 2019-01-10 11:10 | disposition home or self-care (01) | DRG 754 ==
LOC: M ED 04:46 → M ED INP 17:27 → M PSY 19:40
PROVIDERS: ADMIT Psychiatry & Neurology Addiction Medicine; ATTEND Psychiatry & Neurology Addiction Medicine
DX: F32.9 Major depressive disorder, single episode, unspecified (principal); R45.850 Homicidal ideations; R45.851 Suicidal ideations; F11.90 Opioid use, unspecified, uncomplicated; F17.200 Nicotine dependence, unspecified, uncomplicated; F14.90 Cocaine use, unspecified, uncomplicated; F10.10 Alcohol abuse, uncomplicated; F43.10 Post-traumatic stress disorder, unspecified; Z79.899 Other long term (current) drug therapy; M79.7 Fibromyalgia; F41.9 Anxiety disorder, unspecified; K21.9 Gastro-esophageal reflux disease without esophagitis; I10 Essential (primary) hypertension; M19.90 Unspecified osteoarthritis, unspecified site; M54.2 Cervicalgia; E78.5 Hyperlipidemia, unspecified

== ENCOUNTER 2019-02-08 12:05 | Emergency (ER) | payer OTHER ==
[~2019-02-08] VITALS: Ht 185.4 cm; Wt 95.8 kg
[~2019-02-08 12:05] MED LIST changes: +DOCU100C16 PO; +NARC1SPR; +PRAZ1CAP PO; +RISP0.5T3 PO; +TRAZ1TAB10 PO; +[UNRECOGNIZED DRUG - CODE] MT
[2019-02-08] MEDS ORDERED: PREG100C (13:43)
[2019-02-08] MEDS ORDERED: PREG100CA PO ×2 (15:16→15:17)
[2019-02-08 15:25] VITALS: BP 122/79
== END 2019-02-08 15:28 | disposition home or self-care (01) ==
LOC: M ED 12:05
DX: Z76.0 Encounter for issue of repeat prescription (principal); I10 Essential (primary) hypertension; F41.9 Anxiety disorder, unspecified; F33.9 Major depressive disorder, recurrent, unspecified; M79.7 Fibromyalgia; M51.9 Unspecified thoracic, thoracolumbar and lumbosacral intervertebral disc disorder; F17.210 Nicotine dependence, cigarettes, uncomplicated; F11.11 Opioid abuse, in remission; Z79.899 Other long term (current) drug therapy

== ENCOUNTER 2019-02-13 12:47 | Emergency (ER) | payer OTHER ==
[~2019-02-13] VITALS: Ht 185.4 cm; Wt 96.3 kg
[~2019-02-13 12:47] MED LIST changes: +PREG100C
[2019-02-13 12:48] VITALS: BP 168/94
[2019-02-13] MEDS ORDERED: PREG100CA PO (13:37)
== END 2019-02-13 13:46 | disposition home or self-care (01) ==
LOC: M ED 12:47
DX: Z76.0 Encounter for issue of repeat prescription (principal); M79.7 Fibromyalgia; M19.90 Unspecified osteoarthritis, unspecified site; K21.9 Gastro-esophageal reflux disease without esophagitis; F33.9 Major depressive disorder, recurrent, unspecified; F17.200 Nicotine dependence, unspecified, uncomplicated; Z79.899 Other long term (current) drug therapy

== ENCOUNTER → 2019-02-17 | Outpatient (REF) | payer OTHER ==
[2019-02-22 14:07] LABS: CREATININE, URINE 111.6 mg/dL (20.0-300.0); METHADONE, URINE (GC/MS) 13485 ng/mL (Cutoff=100)
== END ==
LOC: M LAB REF 14:06
PROVIDERS: ATTEND Nurse Practitioner Family
DX: M79.7 Fibromyalgia (principal); M79.602 Pain in left arm

== ENCOUNTER → 2019-03-28 | Outpatient (CLI) | payer OTHER ==
--- NOTE | 2019-04-04 04:02 | ECWPNPC ---
PATIENT NAME: SOFIA SPICER : 1970 GENDER: MALE VISIT DATE: 03/28/2019 DISCHARGE DATE: 03/28/19 1611 VISIT LOCKED DATE TIME: PHYSICIAN: SEBASTIÁN CHUNG MD RESOURCE: SEBASTIÁN CHUNG MD REASON FOR APPOINTMENT 1. FIBRO HISTORY OF PRESENT ILLNESS PAIN SCREENING: PATIENT HAS A COMPLAINT OF ACUTE OR CHRONIC PAIN :YES 48 YEAR OLD MALE PATIENT WITH A HISTORY OF CHRONIC NECK AND LOW BACK PAIN. THE PATIENT DESCRIBES THE PAIN SHARP, STABBING, SHOOTING, DAILY, AND CONTINUOUS WITH A PAIN SCORE OF 6-8/10 DEPENDING ON PHYSICAL ACTIVITY. THE PATIENT STATES HIS PAIN IS MAINLY IN HIS NECK AND LOW BACK, WITH PAIN RADIATING DOWN HIS LEGS, BUT IS WORSE IN HIS RIGHT LEG. THE PATIENT STATES HIS PAIN IS WORSE AT NIGHT AND HIS MAIN CONCERN IS THE PAIN IN HIS NECK AND RIGHT SHOULDER AREAS. 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 PATIENT DENIES UNEXPLAINABLE WEIGHT LOSS, FEVER, CHILLS, NEW CHANGES ON HIS URINARY OR BOWEL CONTROL. FALL RISK SCREENING: SCREENING :NO FALLS REPORTED IN THE LAST YEAR CURRENT MEDICATIONS TAKING LYRICA 100 MG CAPSULE 1 CAPSULE ORALLY BID TAKING VENTOLIN HFA 108 (90 BASE) MCG/ACT AEROSOL SOLUTION 2 PUFFS NEEDED INHALATION EVERY 6 HRS TAKING LISINOPRIL 20 MG TABLET 1 TABLET ORALLY ONCE A DAY TAKING GABAPENTIN 400 MG CAPSULE 1 CAPSULE ORALLY THREE TIMES DAILY TAKING EFFEXOR XR 150 MG CAPSULE EXTENDED RELEASE 24 HOUR 2 CAPSULE WITH FOOD ORALLY ONCE A DAY TAKING RISPERIDONE 1 MG TABLET 1 TABLET ORALLY THREE TIMES DAILY TAKING METHADONE HCL DISKETS 185MG ORALLY DAILY MEDICATION LIST REVIEWED AND RECONCILED WITH THE PATIENT PAST MEDICAL HISTORY MAJOR DEPRESSION ANXIETY DISORDER DEPRESSION HYPERTENSION OSTEOARTHRITIS RHEUMATOID ARTHRITIS SUBSTANCE ABUSE - OPIODS FIBROMYALGIA DEGENERATIVE DISC DISEASE ALLERGIES N.K.D.A. SURGICAL HISTORY HERNIA REPAIR 2004 CARPAUL TUNNEL RELEASE 2010 FAMILY HISTORY MOTHER: FAMILY HX OF ALCOHOLISM, ARTHRITIS, DEPRESSION, HYPERTENSION, HIGH CHOLESTEROL, PSYCHIATRIC CARE, ALCOHOL RELATED LIVER CIRRHOSIS. SOCIAL HISTORY GENERAL: TOBACCO USE ARE YOU A:CURRENT SMOKER ARE YOU INTERESTED IN QUITTING?NOT READY TO QUIT COUNSELED THE PATIENT ON SMOKING EFFECTS, EDUCATION [id number]/19/2019 HOW MANY CIGARETTES A DAY DO YOU SMOKE?6-10 PATIENT COUNSELED ON THE DANGERS OF TOBACCO USE AND URGED TO QUIT:03/28/2019 SMOKING CESSATION INFORMATION GIVEN DECLINED CESSATION INFORMATION AT THIS TIME OTHERS AT HOME: NONE. EDUCATION LEVEL OF EDUCATION:HIGH SCHOOL DIET: REGULAR. LANGUAGE LANGUAGES SPOKEN:GUAMANIAN NEW PATIENT PAIN DIARY PATIENT DESCRIBES PAIN :SHARP, STABBING, SHOOTING FROM 0-10, WHAT LEVEL IS YOUR PAIN TODAY?8 IS THERE A CHANCE YOU COULD BE ?NO HAVE YOU BEEN SICK IN THE LAST WEEK (COLD, COUGH, FEVER, FLU, ETC)NO DO YOU TAKE ANY BLOOD THINNERS?NO DO YOU HAVE ANY RASHES OR OPEN SORES?YES ANY CHANGE IN BOWEL OR BLADDER CONTROL?NO ARE YOU ALLERGIC TO SHELLFISH OR IV DYE?NO ARE YOU DIABETIC?NO DO YOU HAVE A PACEMAKER OR DEFIBRILLATOR?NO ANY NEW PROBLEMS WITH MEDICINES OR NEW ALLERGIESNO ANY NEW PATTERNS OF PAIN OR NUMBNESS?YES ANY CHANGE IN YOUR MEDICAL CONDITION?NO HAVE YOU FALLEN IN THE LAST 6 MONTHS?YES DO YOU USE ANY TYPE OF TOBACCO (SMOKE, SMOKELESS, CHEW, ETC.)YES ARE YOU ABUSED, NEGLECTED, OR IN AN UNSAFE ENVIRONMENT?NO DO YOU HAVE THOUGHTS OF HURTING YOURSELF OR SOMEONE ELSE?YES DO YOU NEED ANY PRESCRIPTIONS?YES LYRICA DO YOU HAVE ANY OTHER QUESTIONS OR CONCERNS?NO RECREATIONAL DRUG USE DRUG USE?YES HOW OFTEN AND HOW MUCH? PT STATES THAT HE HAS HX OF HEROIN USE, CURRENTLY USING METHADONE FOR TREATMENT, CURRENTLY IN DAILY TREATMENT PROGRAM EXERCISE: NO REGULAR EXERCISE. 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 ANALYST NEEDED?NO PAIN CLINIC PFS, CLERGY, PUBLIC HEALTH REFERRALS HAS THE PATIENT BEEN EDUCATED REGARDING HIS/HER PLAN OF CARE?YES HAS THE PATIENT BEEN EDUCATED REGARDING PAIN, THE RISK FOR PAIN, THE IMPORTANCE OF EFFECTIVE PAIN MANAGEMENT, AND THE PAIN ASSESSMENT PROCESS?YES ORIENTED TO PAIN MANAGEMENT LATEX QUESTIONNAIRE LATEX ALLERGY : HAVE YOU EVER DEVELOPED ANY TYPE OF REACTION AFTER HANDLING LATEX PRODUCTS SUCH RUBBER GLOVES, CONDOMS, DIAPHRAGMS, BALLOONS, SOCKS, OR UNDERWEAR?NO LATEX ALLERGY : HAVE YOU EVER DEVELOPED ANY TYPE OF REACTION DURING OR AFTER DENTAL APPOINTMENT, VAGINAL/RECTAL EXAMINATION, SURGICAL PROCEDURE, OR ANY OTHER EXPOSURE?NO LATEX RISK : HAVE YOU EVER HAD ANY DIFFICULTY BREATHING OR HIVES AFTER EATING OR HANDLING ANY FRUITS, OR VEGETABLES; SUCH KIWI, BANANAS, STONE FRUITS, OR CHESTNUTSNO LATEX RISK : DO YOU HAVE A PREVIOUS PERSONAL HISTORY OF MORE THAN NINE SURGERIES, SPINA BIFIDA, OR REPEATED CATHERIZATIONS? NO LATEX RISK : ARE YOU FREQUENTLY EXPOSED TO LATEX PRODUCTS IN YOUR OCCUPATION?NO DATE ASKED : 03/28/2019 CAFFEINE CAFFEINE USE?NO PT STATES THAT HE DRINKS DECAFFINATED TEA ADVANCE DIRECTIVE ADVANCE DIRECTIVE DISCUSSED WITH PATIENT:YES PT DENIES HCP, REFUSED INFORMATION AND ASSISTANCE AT THIS TIME MARITAL STATUS: SINGLE. 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 HOSPITALIZATION/MAJOR DIAGNOSTIC PROCEDURE [facility] 2019 REVIEW OF SYSTEMS REVIEWED BY: PROVIDER: SEBASTIÁN CHUNG MD . CONSTITUTIONAL: ANY CHANGE IN YOUR MEDICAL CONDITION? NO . CHILLS NO . FEVER NO . INFECTION: DO YOU HAVE NEW INFECTIONS? NO . DO YOU HAVE HISTORY OF MRSA? NO . MUSCULOSKELETAL: ANY NEW PATTERNS OF PAIN OR NUMBNESS? NO . SYTEMIC LUPUS NO . GASTROENTEROLOGY: ANY NEW CHANGE IN BOWEL CONTROL? NO . BARRETTS ESOPHAGUS NO . CIRRHOSIS NO . HEPATITIS NO . LIVER FAILURE NO . ACID REFLUX NO . UNEXPLAINED WEIGHT LOSS NO . GENITOURINARY: ANY NEW CHANGE IN BLADDER CONTROL? NO . IS THERE A CHANCE YOU COULD BE ? NO . HEMATOLOGY/LYMPH: DO YOU TAKE ANY BLOOD THINNERS? (FOR EXAMPLE- COUMADIN, PLAVIX, AGGRENOX, PLATEL, PRADAXA, OR XARELTO) NO . WHEN WAS YOUR LAST DOSE? DATE: TIME: . LOW PLATELET COUNT NO . SICKLE CELL DISEASE NO . VON WILLIEBRANDS NO . FACTOR V LEIDEN NO . THALLASEMIA NO . ANEMIA NO . EASY BRUISING NO . NEUROLOGY: HAVE YOU FALLEN IN THE PAST 12 MONTHS? NO . ANY NEW EXTREMITY NUMBNESS OR WEAKNESS? YES . HEAD INJURY NO . DEMENTIA NO . CEREBRAL PALSY NO . MULTIPLE SCLEROSIS NO . DIZZINESS NO . HEADACHE NO . STROKES NO . VERTIGO NO . CARDIOLOGY: DO YOU HAVE A PACEMAKER OR DEFIBRILLATOR? NO . ANGINA NO . HEART ATTACK NO . HEART SURGERY NO . CONGESTIVE HEART FAILURE/FLUID OVERLOAD NO . CHEST PAIN NO . HIGH BLOOD PRESSURE NO . IRREGULAR HEART BEAT NO . RESPIRATORY: HAVE YOU BEEN SICK IN THE PAST WEEK? NO . FEVER NO . FLU LIKE SYMPTOMS? NO . CPAP NO . BYPAP NO . ASTHMA NO . EMPHYSEMA NO . CHRONIC LUNG DISEASES NO . SHORTNESS OF BREATH ON EXERTION NO . COUGH NO . SNORING NO . INTEGUMENTARY: DO YOU HAVE ANY RASHES OR OPEN SORES? YES . ALLERGIC/IMMUNO: ARE YOU ALLERGIC TO IV DYE? NO . ANY NEW ALLERGIES? NO . PSYCHIATRIC: DO YOU HAVE THOUGHTS OF HURTING YOURSELF OR SOMEONE ELSE? YES . ARE YOU ABUSED, NEGLECTED, OR IN AN UNSAFE ENVIRONMENT? NO . ENDOCRINOLOGY: ARE YOU DIABETIC? NO . THYROID DISORDER NO . OTHER: DO YOU NEED ANY PRESCRIPTIONS? YES, LYRICA . IF YES, PLEASE LIST: ____ . ANY NEW PROBLEMS WITH YOUR MEDICATIONS? NO . WHEN DID YOU LAST EAT? ____ . WHEN DID YOU LAST DRINK? ____ . WHAT DID YOU LAST DRINK? ____ . NAME OF PERSON DRIVING YOU HOME? ____ . DO YOU HAVE ANY OTHER QUESTIONS OR CONCERNS PT STATES THAT HE HAS EPISODES OF DEPRESSION DUE TO SON BEING IN FOSTER CARE, PT DENIES ANY CURRENT EPISODES OF DEPRESSION, PT DENIES ANY CURRENT PLANS TO HURT HIMSELF, PT STATES THAT HE IS SAFE IN HIS ENVIRONMENT . VITAL SIGNS WT 221.6 LBS, HT 71 IN, BMI 30.90 INDEX, BP 135/86 MM HG, HR 69 /MIN, RR 18 /MIN, TEMP 97.5 F, OXYGEN SAT % 96%, SAFE IN ENV? (Y/N) Y, NA INITIALS AW 1431, REVIEWED BY: BROOK. EXAMINATION GENERAL EXAMINATION: PATIENT IS ALERT O X 3 AND COOPERATIVE. LUNGS CLEAR, TO AUSCULTATION. HEART: NO MURMURS OR GALLOPS; FACIAL CRANIAL NERVES ARE GROSSLY NORMAL. GOOD SYMMETRY OF FACIAL MUSCLE MOVEMENT. NORMAL VISUAL GALLARDO. ANTALGIC WALK. PATIENT IS LIMPING FROM THE RIGHT LEG. TENDERNESS OVER THE NECK AND RIGHT SHOULDER AREAS. PRESENCE OF BANDS OF TISSUE AND TRIGGER POINTS WITH RESTRICTION OF MOVEMENT OF THE NECK AND RIGHT SHOULDER AREAS. TENDERNESS OVER THE PARASPINAL MUSCLE GROUP OF THE LOW BACK. RIGHT LEG IS WEAKER AT EXTENSION AND FLEXION. STRAIGHT LEG RAISE OF THE RIGHT LEG IS POSITIVE AT 45 DEGREES FOR RADICULOPATHY. ASSESSMENTS MYALGIA, OTHER SITE - M79.18 (PRIMARY) NECK PAIN - M54.2 LUMBAGO WITH SCIATICA, LEFT SIDE - M54.42 LUMBAGO WITH SCIATICA, RIGHT SIDE - M54.41 OTHER CHRONIC PAIN - G89.29 R/O LUMBAR DISC DISORDER WITH RADICULOPATHY. TREATMENT MYALGIA, OTHER SITE CLINICAL NOTES: WE DISCUSSED SEVERAL ISSUES WITH MR. SPICER'S PAIN MANAGEMENT CASE. I WILL ORDER FOR NECK AND LOW BACK AP AND LATERAL X-RAYS TO BE DONE SINCE THE PATIENT HAS NOT HAD ANY RECENT IMAGINGS DONE. DUE TO THE TRIGGER POINTS, BANDS OF TISSUE, AND RESTRICTION OF MOVEMENT, I WOULD LIKE TO MOVE FORWARD WITH NECK AND LOW BACK TRIGGER POINT INJECTIONS AT THIS TIME. WE DISCUSSED THE BENEFITS, RISKS, AND ALTERNATIVES OF THE INJECTION AND THE PATIENT WOULD LIKE TO PROCEED. I AM LOOKING FOR LONG LASTING PAIN RELIEF FROM THIS INJECTION FOR THE PATIENT. I WILL REQUEST FOR A [id number] AGREEMENT WITH THE PATIENT'S PRIMARY CARE PHYSICIAN TO POSSIBLY PRESCRIBE ANY NARCOTICS FOR THE PATIENT IN THE FUTURE. THE PATIENT WILL FOLLOW UP IN SEVERAL WEEKS AFTER HIS INJECTION TO SEE HOW IT IS HELPING WITH HIS PAIN AND REVIEW THE X-RAYS' RESULTS. INSTRUCTIONS WERE GIVEN, QUESTIONS WERE ANSWERED, PATIENT REPORTS UNDERSTANDING AND AGREES WITH THE PLAN. I, STACY RAINEY, DOCUMENTED THE ABOVE INFORMATION ACTING A SCRIBE FOR DR. CHUNG. I HAVE REVIEWED THE ABOVE DOCUMENT, WRITTEN BY STACY ORTEGA AND I VERIFY THAT IT IS ACCURATE. DEAR NAIF MCCOLLUM: THANK YOU FOR YOUR KIND REFERRAL OF SOFIA SPICER. IF YOU WANT TO DISCUSS HIS CASE WITH ME PLEASE CALL ME AT THE PAIN CENTER AT [phone]. SINCERELY, SEBASTIÁN CHUNG MD PAIN MEDICINE . PROCEDURE CODES FA211 ESTABILISHED PATIENT THE [facility] FACILITY CHARGE G8427 CURRENT MEDS W/DOSAGES DOCUMENTED G8730 PAIN ASSESS POS TOOL F/U PLAN DOC DISPOSITION & COMMUNICATION FOLLOW UP REASON: NECK/LB TPI, ORDERING NECK/LB X-RAY ELECTRONICALLY SIGNED BY SEBASTIÁN CHUNG MD, MD ON 04/03/2019 AT 02:31 PM EST DISCLAIMER : THIS IS A VISIT SUMMARY EXTRACTED FROM THE [employer] CHART. IT IS NOT A COPY OF THE [employer] PROGRESS NOTE. FRIEDAD
== END ==
LOC: M PAIN 14:30
PROVIDERS: ATTEND Anesthesiology
DX: M79.18 Myalgia, other site (principal); M54.2 Cervicalgia; M54.42 Lumbago with sciatica, left side; M54.41 Lumbago with sciatica, right side; G89.29 Other chronic pain

== ENCOUNTER → 2019-03-28 | Outpatient (CLI) | payer OTHER ==
--- NOTE | 2019-03-28 17:18 | REP ---
Three-view cervical spine and two views lumbar spine: 03/28/2019. Indication: Neck and lumbar pain. Comparison: 07/27/2018 and 04/14/2016. Findings: There is no acute fracture, subluxation or dislocation. No lytic or blastic lesions are present. There is disc space narrowing throughout the lumbar spine. Disc space narrowing is additionally noted at C5/C6. Impression: No acute osseous injuries of the cervical or lumbar spines. Electronically Signed by Carrillo Grimaldo DO 03/28/2019 05:10 P
== END ==
LOC: M RAD 16:25
PROVIDERS: ATTEND Anesthesiology
DX: M51.36 Other intervertebral disc degeneration, lumbar region (principal); M50.322 Other cervical disc degeneration at C5-C6 level

== ENCOUNTER → 2019-05-15 | Outpatient (CLI) | payer OTHER ==
[~2019-05-15] MED LIST changes: +BUPIVACAINE HCL 0.25% 10 ML VIAL As Ordered ONE; +BUPIVACAINE HCL 0.25% 30 ML VIAL As Ordered ONE; +TRIAMCINOLONE ACETONIDE SUSP 40 MG/ML VIAL (J3301) As Ordered ONE; +diazePAM 5 MG TAB As Ordered ONE; +oxyCODONE 5MG TAB As Ordered ONE
--- NOTE | 2019-05-24 04:00 | ECWPNPC ---
PATIENT NAME: SOFIA SPICER : 1970 GENDER: MALE VISIT DATE: 05/15/2019 DISCHARGE DATE: 05/15/19 1533 VISIT LOCKED DATE TIME: PHYSICIAN: SEBASTIÁN CHUNG MD RESOURCE: SEBASTIÁN CHUNG MD REASON FOR APPOINTMENT 1. TPI HISTORY OF PRESENT ILLNESS HISTORY OF PRESENT ILLNESS: PAIN THE PATIENT DESCRIBES THE PAIN... FALL RISK SCREENING: SCREENING :NO FALLS REPORTED IN THE LAST YEAR CURRENT MEDICATIONS TAKING LYRICA 100 MG CAPSULE 1 CAPSULE ORALLY BID, NOTES: OUT OF MED- LD 2 WEEKS AGO TAKING VENTOLIN HFA 108 (90 BASE) MCG/ACT AEROSOL SOLUTION 2 PUFFS NEEDED INHALATION EVERY 6 HRS, NOTES: 05/15/19 0800 TAKING LISINOPRIL 20 MG TABLET 1 TABLET ORALLY ONCE A DAY, NOTES: A COUPLE OF DAYS AGO TAKING GABAPENTIN 400 MG CAPSULE 1 CAPSULE ORALLY THREE TIMES DAILY, NOTES: 05/15/19 0800 TAKING EFFEXOR XR 150 MG CAPSULE EXTENDED RELEASE 24 HOUR 2 CAPSULE WITH FOOD ORALLY ONCE A DAY, NOTES: 05/15/19 0800 TAKING RISPERIDONE 1 MG TABLET 1 TABLET ORALLY THREE TIMES DAILY, NOTES: 05/15/19 0800 TAKING METHADONE HCL DISKETS 185MG ORALLY DAILY, NOTES: 05/15/19 1115 MEDICATION LIST REVIEWED AND RECONCILED WITH THE PATIENT PAST MEDICAL HISTORY MAJOR DEPRESSION ANXIETY DISORDER DEPRESSION HYPERTENSION OSTEOARTHRITIS RHEUMATOID ARTHRITIS SUBSTANCE ABUSE - OPIODS FIBROMYALGIA DEGENERATIVE DISC DISEASE ALLERGIES N.K.D.A. SURGICAL HISTORY HERNIA REPAIR 2003 CARPAUL TUNNEL RELEASE 2010 FAMILY HISTORY MOTHER: FAMILY HX OF ALCOHOLISM, ARTHRITIS, DEPRESSION, HYPERTENSION, HIGH CHOLESTEROL, PSYCHIATRIC CARE, ALCOHOL RELATED LIVER CIRRHOSIS. SOCIAL HISTORY GENERAL: TOBACCO USE ARE YOU A:CURRENT SMOKER ARE YOU INTERESTED IN QUITTING?NOT READY TO QUIT COUNSELED THE PATIENT ON SMOKING EFFECTS, EDUCATION [id number]/19/2019 HOW MANY CIGARETTES A DAY DO YOU SMOKE?6-10 PATIENT COUNSELED ON THE DANGERS OF TOBACCO USE AND URGED TO QUIT:05/15/2019 SMOKING CESSATION INFORMATION GIVEN DECLINED CESSATION INFORMATION AT THIS TIME OTHERS AT HOME: NONE. EDUCATION LEVEL OF EDUCATION:HIGH SCHOOL DIET: REGULAR. LANGUAGE LANGUAGES SPOKEN:SWEDISH NEW PATIENT PAIN DIARY PATIENT DESCRIBES PAIN :SHARP, STABBING, SHOOTING FROM 0-10, WHAT LEVEL IS YOUR PAIN TODAY?8 IS THERE A CHANCE YOU COULD BE ?NO HAVE YOU BEEN SICK IN THE LAST WEEK (COLD, COUGH, FEVER, FLU, ETC)NO DO YOU TAKE ANY BLOOD THINNERS?NO DO YOU HAVE ANY RASHES OR OPEN SORES?YES ANY CHANGE IN BOWEL OR BLADDER CONTROL?NO ARE YOU ALLERGIC TO SHELLFISH OR IV DYE?NO ARE YOU DIABETIC?NO DO YOU HAVE A PACEMAKER OR DEFIBRILLATOR?NO ANY NEW PROBLEMS WITH MEDICINES OR NEW ALLERGIESNO ANY NEW PATTERNS OF PAIN OR NUMBNESS?YES ANY CHANGE IN YOUR MEDICAL CONDITION?NO HAVE YOU FALLEN IN THE LAST 6 MONTHS?YES DO YOU USE ANY TYPE OF TOBACCO (SMOKE, SMOKELESS, CHEW, ETC.)YES ARE YOU ABUSED, NEGLECTED, OR IN AN UNSAFE ENVIRONMENT?NO DO YOU HAVE THOUGHTS OF HURTING YOURSELF OR SOMEONE ELSE?YES DO YOU NEED ANY PRESCRIPTIONS?YES ROSITA DO YOU HAVE ANY OTHER QUESTIONS OR CONCERNS?NO RECREATIONAL DRUG USE DRUG USE?YES HOW OFTEN AND HOW MUCH? PT STATES THAT HE HAS HX OF HEROIN USE, CURRENTLY USING METHADONE FOR TREATMENT, CURRENTLY IN DAILY TREATMENT PROGRAM EXERCISE: NO REGULAR EXERCISE. LEARNING BARRIERS / SPECIAL NEEDS BARRIERS TO LEARNING?NO HEARING IMPAIRED?NO VISION IMPAIRED?NO COGNITIVELY IMPAIRED?NO READINESS TO LEARN?YES LEARNING PREFERENCES?NO LEARNING CAPABILITIES PRESENT?YES EMOTIONAL BARRIERS?NO SPECIAL DEVICES?NO LIBRARY SCIENCE PROFESSOR NEEDED?NO PAIN CLINIC PFS, CLERGY, PUBLIC HEALTH REFERRALS HAS THE PATIENT BEEN EDUCATED REGARDING HIS/HER PLAN OF CARE?YES HAS THE PATIENT BEEN EDUCATED REGARDING PAIN, THE RISK FOR PAIN, THE IMPORTANCE OF EFFECTIVE PAIN MANAGEMENT, AND THE PAIN ASSESSMENT PROCESS?YES ORIENTED TO PAIN MANAGEMENT LATEX QUESTIONNAIRE LATEX ALLERGY : HAVE YOU EVER DEVELOPED ANY TYPE OF REACTION AFTER HANDLING LATEX PRODUCTS SUCH RUBBER GLOVES, CONDOMS, DIAPHRAGMS, BALLOONS, SOCKS, OR UNDERWEAR?NO LATEX ALLERGY : HAVE YOU EVER DEVELOPED ANY TYPE OF REACTION DURING OR AFTER DENTAL APPOINTMENT, VAGINAL/RECTAL EXAMINATION, SURGICAL PROCEDURE, OR ANY OTHER EXPOSURE?NO DATE ASKED : 03/28/2019 LATEX RISK : HAVE YOU EVER HAD ANY DIFFICULTY BREATHING OR HIVES AFTER EATING OR HANDLING ANY FRUITS, OR VEGETABLES; SUCH KIWI, BANANAS, STONE FRUITS, OR CHESTNUTSNO LATEX RISK : DO YOU HAVE A PREVIOUS PERSONAL HISTORY OF MORE THAN NINE SURGERIES, SPINA BIFIDA, OR REPEATED CATHERIZATIONS? NO LATEX RISK : ARE YOU FREQUENTLY EXPOSED TO LATEX PRODUCTS IN YOUR OCCUPATION?NO CAFFEINE CAFFEINE USE?NO PT STATES THAT HE DRINKS DECAFFINATED TEA ADVANCE DIRECTIVE ADVANCE DIRECTIVE DISCUSSED WITH PATIENT:YES PT DENIES HCP, REFUSED INFORMATION AND ASSISTANCE AT THIS TIME MARITAL STATUS: SINGLE. 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 REVIEWED WITH PATIENT 05/15/19 1403 NLJ. HOSPITALIZATION/MAJOR DIAGNOSTIC PROCEDURE [facility] 2019 REVIEW OF SYSTEMS REVIEWED BY: PROVIDER: . CONSTITUTIONAL: ANY CHANGE IN YOUR MEDICAL CONDITION? NO . CHILLS NO . FEVER NO . INFECTION: DO YOU HAVE NEW INFECTIONS? NO . DO YOU HAVE HISTORY OF MRSA? NO . MUSCULOSKELETAL: ANY NEW PATTERNS OF PAIN OR NUMBNESS? NO . GASTROENTEROLOGY: ANY NEW CHANGE IN BOWEL CONTROL? NO . GENITOURINARY: ANY NEW CHANGE IN BLADDER CONTROL? NO . IS THERE A CHANCE YOU COULD BE ? NO . HEMATOLOGY/LYMPH: DO YOU TAKE ANY BLOOD THINNERS? (FOR EXAMPLE- COUMADIN, PLAVIX, AGGRENOX, PLATEL, PRADAXA, OR XARELTO) NO . WHEN WAS YOUR LAST DOSE? DATE: TIME: . NEUROLOGY: HAVE YOU FALLEN IN THE PAST 12 MONTHS? NO . ANY NEW EXTREMITY NUMBNESS OR WEAKNESS? NO . CARDIOLOGY: DO YOU HAVE A PACEMAKER OR DEFIBRILLATOR? NO . RESPIRATORY: HAVE YOU BEEN SICK IN THE PAST WEEK? NO . FEVER NO . FLU LIKE SYMPTOMS? NO . COUGH NO . INTEGUMENTARY: DO YOU HAVE ANY RASHES OR OPEN SORES? NO . ALLERGIC/IMMUNO: ARE YOU ALLERGIC TO IV DYE? NO . ANY NEW ALLERGIES? NO . PSYCHIATRIC: DO YOU HAVE THOUGHTS OF HURTING YOURSELF OR SOMEONE ELSE? NO . ARE YOU ABUSED, NEGLECTED, OR IN AN UNSAFE ENVIRONMENT? NO . ENDOCRINOLOGY: ARE YOU DIABETIC? NO . OTHER: DO YOU NEED ANY PRESCRIPTIONS? NO . IF YES, PLEASE LIST: ____ . ANY NEW PROBLEMS WITH YOUR MEDICATIONS? NO . WHEN DID YOU LAST EAT? 05/14/19 1800 . WHEN DID YOU LAST DRINK? 05/15/19 0800 . WHAT DID YOU LAST DRINK? SWEETENED ICE TEA- STATES ICE TEA HAD NO ADDED SUGAR OR CREAMER IN IT . NAME OF PERSON DRIVING YOU HOME? ORI . DO YOU HAVE ANY OTHER QUESTIONS OR CONCERNS NO . VITAL SIGNS WT 211.2 LBS, HT 71 IN, BMI 29.45 INDEX, BP 139/90 MM HG, HR 94 /MIN, RR 18 /MIN, TEMP 95.5 F, OXYGEN SAT % 95%, SAFE IN ENV? (Y/N) YES, NA INITIALS AW 1346, REVIEWED BY: LEONILA. ASSESSMENTS MYALGIA, OTHER SITE - M79.18 (PRIMARY) PROCEDURES PN TRIGGER POINT INJECTION WITH STEROIDS PRE PROCEDURE DIAGNOSIS 1. MYALGIA 2. PAIN AT RIGHT SHOULDER AREA, RIGHT THORACIC AREA, AND RIGHT LUMBAR AREA. POST PROCEDURE DIAGNOSIS 1. MYALGIA 2. PAIN AT RIGHT SHOULDER AREA, RIGHT THORACIC AREA, AND RIGHT LUMBAR AREA. PROCEDURE TRIGGER POINT INJECTION AT RIGHT SHOULDER AREA, RIGHT THORACIC AREA, AND RIGHT LUMBAR AREA. SURGEON DR. SEBASTIÁN CHUNG GUARD RAIL INSTALLER NONE ANESTHESIA LOCAL PRE PROCEDURE NOTE THE PATIENT HAS A HISTORY OF CHRONIC PAIN AT THE RIGHT SHOULDER, RIGHT THORACIC AREA, RIGHT LUMBAR AREA. I EVALUATED THE PATIENT AND REVIEWED THE CHART. THERE IS EVIDENCE OF BANDS OF TISSUE WITH RESTRICTION OF MOVEMENT AND PRESENCE OF TRIGGER POINT AT THE AFFECTED AREA. I WENT OVER THE RISKS, ALTERNATIVES, AND BENEFITS ASSOCIATED WITH THIS PROCEDURE. THE PATIENT WOULD LIKE TO PROCEED AND GIVES CONSENT TO PERFORM THE PROCEDURE. THE PATIENT DENIES UNEXPLAINABLE WEIGHT LOSS, FEVER, CHILLS, OR NEW CHANGES IN URINARY OR BOWEL CONTROL DESCRIPTION OF PROCEDURE THE PATIENT WAS BROUGHT TO THE PROCEDURE ROOM AND PLACED IN THE SITTING POSITION. THE AREA WAS CLEANED WITH ALCOHOL. THE PROCEDURE WAS DONE USING [employer]SE[employer] STERILE TECHNIQUE. I CHECKED LATERALITY AND THE LEVEL WHERE THE PROCEDURE WAS GOING TO BE PERFORMED WITH THE PATIENT AND THE SUPPORTING STAFF AT THE MOMENT OF THE TIME OUT IN THE PROCEDURE ROOM. USING A 25-GAUGE NEEDLE, TRIGGER POINTS WERE INJECTED AT THE RIGHT SHOULDER AREA, RIGHT THORACIC AREA, AND RIGHT LUMBAR AREA WITH A TOTAL OF 40 ML OF BUPIVACAINE 0.25% AND KENALOG 40 MG. THERE WAS NO EVIDENCE OF BLOOD, PARESTHESIA OR CEREBROSPINAL FLUID DURING THE PROCEDURE. THE PATIENT WAS SENT TO THE RECOVERY ROOM. THE PATIENT WAS MOVING THE EXTREMITIES AND DOING WELL. THERE WAS NO COMPLICATION DURING THE PROCEDURE POST PROCEDURE NOTE THE PATIENT WILL BE SEEN IN A FOLLOW UP IN THE NEXT FEW WEEKS. I AM LOOKING FOR LONG LASTING PAIN RELIEF WITH THIS INTERVENTION. INSTRUCTIONS WERE GIVEN, QUESTIONS WERE ANSWERED, AND THE PATIENT EXPRESSED UNDERSTANDING AND AGREES WITH THE PLAN. I, STACY RAINEY, DOCUMENTED THE ABOVE INFORMATION ACTING A SCRIBE FOR DR. CHUNG. I HAVE REVIEWED THE ABOVE DOCUMENT, WRITTEN BY STACY ORTEGA AND I VERIFY THAT IT IS ACCURATE. PROCEDURE CODES 56983 INJECT TRIGGER POINTS 3/> DISPOSITION & COMMUNICATION FOLLOW UP 3 WEEKS ELECTRONICALLY SIGNED BY SEBASTIÁN CHUNG MD, MD ON 05/23/2019 AT 09:26 AM EST DISCLAIMER : THIS IS A VISIT SUMMARY EXTRACTED FROM THE [employer] CHART. IT IS NOT A COPY OF THE [employer] PROGRESS NOTE. ROSIO
== END ==
LOC: M PAIN 14:45
PROVIDERS: ATTEND Anesthesiology
DX: M79.18 Myalgia, other site (principal); Z86.59 Personal history of other mental and behavioral disorders; I10 Essential (primary) hypertension; F17.210 Nicotine dependence, cigarettes, uncomplicated; Z79.891 Long term (current) use of opiate analgesic; Z79.899 Other long term (current) drug therapy
CPT/HCPCS: 20553; J3301

== ENCOUNTER → 2019-07-17 | Outpatient (CLI) | payer OTHER ==
[~2019-07-17] MED LIST changes: -BUPIVACAINE HCL 0.25% 10 ML VIAL As Ordered ONE; -BUPIVACAINE HCL 0.25% 30 ML VIAL As Ordered ONE; -TRIAMCINOLONE ACETONIDE SUSP 40 MG/ML VIAL (J3301) As Ordered ONE; -diazePAM 5 MG TAB As Ordered ONE; -oxyCODONE 5MG TAB As Ordered ONE
--- NOTE | 2019-08-02 03:42 | ECWPNPC ---
PATIENT NAME: SOFIA SPICER : 1970 GENDER: MALE VISIT DATE: 07/17/2019 DISCHARGE DATE: 07/17/19 1432 VISIT LOCKED DATE TIME: PHYSICIAN: FARHAN DEAN RESOURCE: FARHAN DEAN REASON FOR APPOINTMENT 1. 30 MIN POST TPI HISTORY OF PRESENT ILLNESS HISTORY OF PRESENT ILLNESS: HERE FOR POST PROCEDURE FOLLOW-UP. HEAD TRIGGER POINT INJECTIONS, RIGHT SHOULDER, RIGHT THORACIC AND RIGHT LUMBAR REGION ON 05/15/2019. REPORTS MARKED IMPROVEMENT IN PAIN AND THEN PAIN GRADUALLY RETURNED TO BASELINE OVER THE PAST 2 WEEKS. PATIENT IS ASKING TO BE PUT BACK ON LYRICA. HE WAS ON 200 MG 3 TIMES A DAY FOR SEVERAL YEARS, BUT THEY STOPPED THIS OVER THE PAST 6 MONTHS. HISTORY OF ADDICTION DISORDER. STATES HE'S BEEN CLEAN FROM COCAINE FOR 3 MONTHS. HE IS AWARE THAT THIS IS A CONTROLLED SUBSTANCE. WE WOULD NEED A NOTE FROM [facility] OKAYING HIM USING LYRICA AND WE COULD CONSIDER PRESCRIBING THIS SHOULD WE GET BOTH OF THOSE. CURRENTLY ON METHADONE THERAPY FOR ADDICTION DISORDER. ON GABAPENTIN THERAPY FOR PSYCHIATRIC REASONS. CHIEF AREA OF PAIN IS RIGHT SHOULDER AND UPPER BACK. STATES HE WAS DIAGNOSED WITH FIBROMYALGIA. PAIN THE PATIENT DESCRIBES THE PAIN... FALL RISK SCREENING: SCREENING :NO FALLS REPORTED IN THE LAST YEAR CURRENT MEDICATIONS TAKING VENTOLIN HFA 108 (90 BASE) MCG/ACT AEROSOL SOLUTION 2 PUFFS NEEDED INHALATION EVERY 6 HRS TAKING LISINOPRIL 20 MG TABLET 1 TABLET ORALLY ONCE A DAY TAKING GABAPENTIN 400 MG CAPSULE 1 CAPSULE ORALLY THREE TIMES DAILY TAKING EFFEXOR XR 150 MG CAPSULE EXTENDED RELEASE 24 HOUR 2 CAPSULE WITH FOOD ORALLY ONCE A DAY TAKING RISPERIDONE 1 MG TABLET 1 TABLET ORALLY THREE TIMES DAILY TAKING METHADONE HCL DISKETS 185MG ORALLY DAILY TAKING LYRICA 100 MG CAPSULE 1 CAPSULE ORALLY BID MEDICATION LIST REVIEWED AND RECONCILED WITH THE PATIENT PAST MEDICAL HISTORY MAJOR DEPRESSION ANXIETY DISORDER DEPRESSION HYPERTENSION OSTEOARTHRITIS RHEUMATOID ARTHRITIS SUBSTANCE ABUSE - OPIODS FIBROMYALGIA DEGENERATIVE DISC DISEASE ALLERGIES N.K.D.A. SURGICAL HISTORY HERNIA REPAIR 2003 CARPAUL TUNNEL RELEASE 2010 FAMILY HISTORY MOTHER: FAMILY HX OF ALCOHOLISM, ARTHRITIS, DEPRESSION, HYPERTENSION, HIGH CHOLESTEROL, PSYCHIATRIC CARE, ALCOHOL RELATED LIVER CIRRHOSIS. SOCIAL HISTORY GENERAL: TOBACCO USE ARE YOU A:CURRENT SMOKER ARE YOU INTERESTED IN QUITTING?NOT READY TO QUIT COUNSELED THE PATIENT ON SMOKING EFFECTS, EDUCATION MATRCWGV22/09/2020 HOW MANY CIGARETTES A DAY DO YOU SMOKE?6-10 PATIENT COUNSELED ON THE DANGERS OF TOBACCO USE AND URGED TO QUIT:07/17/2019 SMOKING CESSATION INFORMATION GIVEN DECLINED CESSATION INFORMATION AT THIS TIME OTHERS AT HOME: NONE. EDUCATION LEVEL OF EDUCATION:HIGH SCHOOL DIET: REGULAR. LANGUAGE LANGUAGES SPOKEN:ANDORRAN NEW PATIENT PAIN DIARY PATIENT DESCRIBES PAIN :SHARP, STABBING, SHOOTING FROM 0-10, WHAT LEVEL IS YOUR PAIN TODAY?8 IS THERE A CHANCE YOU COULD BE ?NO HAVE YOU BEEN SICK IN THE LAST WEEK (COLD, COUGH, FEVER, FLU, ETC)NO DO YOU TAKE ANY BLOOD THINNERS?NO DO YOU HAVE ANY RASHES OR OPEN SORES?YES ANY CHANGE IN BOWEL OR BLADDER CONTROL?NO ARE YOU ALLERGIC TO SHELLFISH OR IV DYE?NO ARE YOU DIABETIC?NO DO YOU HAVE A PACEMAKER OR DEFIBRILLATOR?NO ANY NEW PROBLEMS WITH MEDICINES OR NEW ALLERGIESNO ANY NEW PATTERNS OF PAIN OR NUMBNESS?YES ANY CHANGE IN YOUR MEDICAL CONDITION?NO HAVE YOU FALLEN IN THE LAST 6 MONTHS?YES DO YOU USE ANY TYPE OF TOBACCO (SMOKE, SMOKELESS, CHEW, ETC.)YES ARE YOU ABUSED, NEGLECTED, OR IN AN UNSAFE ENVIRONMENT?NO DO YOU HAVE THOUGHTS OF HURTING YOURSELF OR SOMEONE ELSE?YES DO YOU NEED ANY PRESCRIPTIONS?YES ROSITA DO YOU HAVE ANY OTHER QUESTIONS OR CONCERNS?NO RECREATIONAL DRUG USE DRUG USE?YES HOW OFTEN AND HOW MUCH? PT STATES THAT HE HAS HX OF HEROIN USE, CURRENTLY USING METHADONE FOR TREATMENT, CURRENTLY IN DAILY TREATMENT PROGRAM EXERCISE: NO REGULAR EXERCISE. LEARNING BARRIERS / SPECIAL NEEDS BARRIERS TO LEARNING?NO HEARING IMPAIRED?NO VISION IMPAIRED?NO COGNITIVELY IMPAIRED?NO READINESS TO LEARN?YES LEARNING PREFERENCES?NO LEARNING CAPABILITIES PRESENT?YES EMOTIONAL BARRIERS?NO SPECIAL DEVICES?NO FORENSIC SOCIAL WORKER NEEDED?NO PAIN CLINIC PFS, CLERGY, PUBLIC HEALTH REFERRALS HAS THE PATIENT BEEN EDUCATED REGARDING HIS/HER PLAN OF CARE?YES HAS THE PATIENT BEEN EDUCATED REGARDING PAIN, THE RISK FOR PAIN, THE IMPORTANCE OF EFFECTIVE PAIN MANAGEMENT, AND THE PAIN ASSESSMENT PROCESS?YES ORIENTED TO PAIN MANAGEMENT LATEX QUESTIONNAIRE LATEX ALLERGY : HAVE YOU EVER DEVELOPED ANY TYPE OF REACTION AFTER HANDLING LATEX PRODUCTS SUCH RUBBER GLOVES, CONDOMS, DIAPHRAGMS, BALLOONS, SOCKS, OR UNDERWEAR?NO LATEX ALLERGY : HAVE YOU EVER DEVELOPED ANY TYPE OF REACTION DURING OR AFTER DENTAL APPOINTMENT, VAGINAL/RECTAL EXAMINATION, SURGICAL PROCEDURE, OR ANY OTHER EXPOSURE?NO LATEX RISK : HAVE YOU EVER HAD ANY DIFFICULTY BREATHING OR HIVES AFTER EATING OR HANDLING ANY FRUITS, OR VEGETABLES; SUCH KIWI, BANANAS, STONE FRUITS, OR CHESTNUTSNO LATEX RISK : DO YOU HAVE A PREVIOUS PERSONAL HISTORY OF MORE THAN NINE SURGERIES, SPINA BIFIDA, OR REPEATED CATHERIZATIONS? NO LATEX RISK : ARE YOU FREQUENTLY EXPOSED TO LATEX PRODUCTS IN YOUR OCCUPATION?NO DATE ASKED : 03/28/2019 CAFFEINE CAFFEINE USE?NO PT STATES THAT HE DRINKS DECAFFINATED TEA ADVANCE DIRECTIVE ADVANCE DIRECTIVE DISCUSSED WITH PATIENT:YES PT DENIES HCP, REFUSED INFORMATION AND ASSISTANCE AT THIS TIME. MARITAL STATUS: SINGLE. ALCOHOL SCREENING DID YOU HAVE A DRINK CONTAINING ALCOHOL IN THE PAST YEAR?NO POINTS0 INTERPRETATIONNEGATIVE OCCUPATION: DISABILITY. HOSPITALIZATION/MAJOR DIAGNOSTIC PROCEDURE [facility] 2018 [facility]; MANDATED REHAB 06/2019 REVIEW OF SYSTEMS REVIEWED BY: PROVIDER: FARHAN DISLA . CONSTITUTIONAL: ANY CHANGE IN YOUR MEDICAL CONDITION? NO . CHILLS NO . FEVER NO . INFECTION: DO YOU HAVE NEW INFECTIONS? NO . DO YOU HAVE HISTORY OF MRSA? NO . MUSCULOSKELETAL: ANY NEW PATTERNS OF PAIN OR NUMBNESS? YES, STATES PAIN IS INCREASING . GASTROENTEROLOGY: ANY NEW CHANGE IN BOWEL CONTROL? NO . GENITOURINARY: ANY NEW CHANGE IN BLADDER CONTROL? NO . IS THERE A CHANCE YOU COULD BE ? NO . HEMATOLOGY/LYMPH: DO YOU TAKE ANY BLOOD THINNERS? (FOR EXAMPLE- COUMADIN, PLAVIX, AGGRENOX, PLATEL, PRADAXA, OR XARELTO) NO . WHEN WAS YOUR LAST DOSE? DATE: TIME: . NEUROLOGY: HAVE YOU FALLEN IN THE PAST 12 MONTHS? NO . ANY NEW EXTREMITY NUMBNESS OR WEAKNESS? NO . CARDIOLOGY: DO YOU HAVE A PACEMAKER OR DEFIBRILLATOR? NO . RESPIRATORY: HAVE YOU BEEN SICK IN THE PAST WEEK? NO . FEVER NO . FLU LIKE SYMPTOMS? NO . COUGH NO . INTEGUMENTARY: DO YOU HAVE ANY RASHES OR OPEN SORES? NO . ALLERGIC/IMMUNO: ARE YOU ALLERGIC TO IV DYE? NO . ANY NEW ALLERGIES? NO . PSYCHIATRIC: DO YOU HAVE THOUGHTS OF HURTING YOURSELF OR SOMEONE ELSE? NO . ARE YOU ABUSED, NEGLECTED, OR IN AN UNSAFE ENVIRONMENT? NO . ENDOCRINOLOGY: ARE YOU DIABETIC? NO . OTHER: DO YOU NEED ANY PRESCRIPTIONS? YES . IF YES, PLEASE LIST: ____LYRICA . ANY NEW PROBLEMS WITH YOUR MEDICATIONS? NO . WHEN DID YOU LAST EAT? ____ . WHEN DID YOU LAST DRINK? ____ . WHAT DID YOU LAST DRINK? ____ . NAME OF PERSON DRIVING YOU HOME? ____ . DO YOU HAVE ANY OTHER QUESTIONS OR CONCERNS NO . VITAL SIGNS WT 208.6 LBS, HT 71 IN, BMI 29.09 INDEX, BP 139/80 MM HG, HR 88 /MIN, RR 18 /MIN, TEMP 95.3 F, OXYGEN SAT % 96%, SAFE IN ENV? (Y/N) YES, NA INITIALS MS 1334, REVIEWED BY: ALEKSANDRA. EXAMINATION GENERAL EXAMINATION: GENERAL AWAKE,ALERT ,PLEAASANT . PSYCH AFFECT NORMAL . LUNGS: LUNG GALLARDO ARE CLEAR TO AUSCULTATION BILATERALLY. GOOD MOVEMENT OF AIR . HEART: S1, S2 IN A REGULAR RATE AND RHYTHM. NO SIGNIFICANT MURMURS, RUBS OR GALLOPS NOTED . MUSCULOSKELETAL: TRIGGER POINTS:ELICITED WITH PALPATION OVER RIGHT SHOULDER/UPPER BACK/RHOMBOID REGION. AGGRAVATION IN PAIN WITH USE OF RIGHT ARM. ASSESSMENTS MYALGIA, OTHER SITE - M79.18 (PRIMARY) TREATMENT MYALGIA, OTHER SITE NOTES: TPI RIGHT SHOULDER, RIGHT UPPER BACK, SCAPULAR . CURRENTLY PATIENT DOES NOT HAVE A PRIMARY CARE PROVIDER. I HAVE GIVEN HIM [facility], PHONE NUMBERS TO CALL AND SET UP AN APPOINTMENT FOR PRIMARY CARE. INFORMED HIM THAT WE WOULD NEED AN OKAY FROM PRIMARY CARE PROVIDER [facility] TO START USE OF LYRICA FOR FIBROMYALGIA. PREVENTIVE MEDICINE PAIN CLINIC TEACHING: PROCEDURE TEACHING REVIEWED INFORMATION ON TRIGGER POINT INJECTION PROCEDURE WITH PATIENT. ALSO REVIEWED PRE-PROCEDURE INSTRUCTIONS. PATIENT VERBALZIED AN UNDERSTANDING. MEGAN ZAMAN 07/17/2019 2:37:05 PM > . PROCEDURE CODES FA211 ESTABILISHED PATIENT [facility] CHARGE DISPOSITION & COMMUNICATION FOLLOW UP POST (REASON: TPI RIGHT SHOULDER, RIGHT UPPER BACK, SCAPULAR) ELECTRONICALLY SIGNED BY NAIF DON ON 08/01/2019 AT 03:54 PM EDT DISCLAIMER : THIS IS A VISIT SUMMARY EXTRACTED FROM THE [facility] CHART. IT IS NOT A COPY OF THE [facility] PROGRESS NOTE. ROSIO
== END ==
LOC: M PAIN 13:30
PROVIDERS: ATTEND Nurse Practitioner Family
DX: M79.18 Myalgia, other site (principal)

== ENCOUNTER 2019-12-05 11:30 | Emergency (ER) | payer OTHER ==
[~2019-12-05 11:30] MED LIST changes: +ERYT1CAP2 PO; -ERYT25CAEC PO; +NICO-262 MT; -[UNRECOGNIZED DRUG - CODE] MT
== END 2019-12-05 13:20 | disposition home or self-care (01) ==
LOC: M ED 11:30
DX: L60.0 Ingrowing nail (principal); M79.671 Pain in right foot; M79.672 Pain in left foot; M79.7 Fibromyalgia; F11.20 Opioid dependence, uncomplicated; F10.10 Alcohol abuse, uncomplicated; I10 Essential (primary) hypertension; F41.9 Anxiety disorder, unspecified; Z79.899 Other long term (current) drug therapy

== ENCOUNTER → 2019-12-13 | Emergency (ER) | payer OTHER ==
[~2019-12-13] MED LIST changes: +CALC3OIN TOP; +GABA-845 PO; +HYDR25OIN TOP; +IBUP-1022 PO; +KETOROLAC 60MG 2ML VIAL As Ordered ONE; +KETOROLAC 60MG 2ML VIAL ONE; +LASI20TA3 PO; +LISI10TA4 PO; +RISP2TAB3 PO; +hydrocortisone cream TOP
== END | disposition home or self-care (01) ==
LOC: M ED 16:15
DX: S43.402A Unspecified sprain of left shoulder joint, initial encounter (principal); W01.0XXA Fall on same level from slipping, tripping and stumbling without subsequent striking against object, initial encounter; Y92.099 Unspecified place in other non-institutional residence as the place of occurrence of the external cause; Y93.9 Activity, unspecified; Y99.9 Unspecified external cause status; I10 Essential (primary) hypertension; F17.200 Nicotine dependence, unspecified, uncomplicated; F11.21 Opioid dependence, in remission; Z79.899 Other long term (current) drug therapy
CPT/HCPCS: 73060; 96372; 99283; J1885

== ENCOUNTER → 2019-12-16 | Emergency (ER) | payer OTHER ==
[~2019-12-16] MED LIST changes: +KETOROLAC 30 MG/ML 1ML VIAL ONE; -KETOROLAC 60MG 2ML VIAL As Ordered ONE; -KETOROLAC 60MG 2ML VIAL ONE
== END | disposition home or self-care (01) ==
LOC: M ED 20:31
DX: M75.102 Unspecified rotator cuff tear or rupture of left shoulder, not specified as traumatic (principal); Z79.899 Other long term (current) drug therapy
CPT/HCPCS: 96372; 99283; J1885

== ENCOUNTER 2019-12-25 22:46 | Emergency (ER) | payer OTHER ==
[~2019-12-25 22:46] MED LIST changes: -CALC3OIN TOP; -GABA-845 PO; -HYDR25OIN TOP; -IBUP-1022 PO; -KETOROLAC 30 MG/ML 1ML VIAL ONE; -LASI20TA3 PO; -LISI10TA4 PO; -RISP2TAB3 PO; -hydrocortisone cream TOP
== END 2019-12-25 23:36 | disposition home or self-care (01) ==
LOC: M ED 22:46
DX: S46.912A Strain of unspecified muscle, fascia and tendon at shoulder and upper arm level, left arm, initial encounter (principal); F16.10 Hallucinogen abuse, uncomplicated; W19.XXXA Unspecified fall, initial encounter; Y92.410 Unspecified street and highway as the place of occurrence of the external cause; Y93.9 Activity, unspecified; Y99.9 Unspecified external cause status; M19.012 Primary osteoarthritis, left shoulder; Z79.899 Other long term (current) drug therapy

== ENCOUNTER 2020-01-18 17:17 | Emergency (ER) | payer OTHER ==
[~2020-01-18] VITALS: Ht 185.4 cm; Wt 89.1 kg
[2020-01-18 18:54] LABS: BASO # 0.1 10^3/uL (0.0-0.2); BASO % 0.9 % (0.0-1.0); EOS # 0.3 10^3/uL (0.0-0.5); EOS % 3.6 % (0.0-3.0); HEMATOCRIT 37.2 % (42.0-52.0); HEMOGLOBIN 11.9 g/dl (13.5-17.5); LYMPH # 1.7 10^3/uL (1.5-5.0); LYMPH % 22.1 % (24.0-44.0); MEAN CORPUSCULAR HEMOGLOBIN 28.3 pg (27.0-33.0); MEAN CORPUSCULAR VOLUME 88.6 fl (80.0-96.0); MONO # 0.6 10^3/uL (0.0-0.8); MONO % 7.8 % (0.0-5.0); NEUTROPHILS % 64.6 % (36.0-66.0); PLATELET COUNT, AUTOMATED 397 10^3/uL (150-450); WHITE BLOOD COUNT 7.7 10^3/uL (4.0-10.0)
--- NOTE | 2020-01-18 19:17 | REPVR ---
PROCEDURE INFORMATION: Exam: XR Chest, 2 Views Exam date and time: 01/18/2020 6:18 PM Age: 49 years old Clinical indication: Shortness of breath; Additional info: Dyspnea/cough TECHNIQUE: Imaging protocol: XR of the chest Views: 2 views. COMPARISON: CR PORTABLE CHEST X-RAY 10/10/2018 7:36 PM FINDINGS: Lungs: There is prominent linear scarring at the left lower lung field similar to the previous exam. There is some linear scarring at the right medial lung base and this is also similar to previous exams. Pleural space: There is no evidence of pneumothorax. There is prominent pleural thickening along the left lateral thorax and this has increased since 2019. I suspect this represents progressive pleural thickening and scarring. It would be helpful to have a CT scan of the chest for further evaluation of this and to exclude pathology. Heart/Mediastinum: The heart is normal in size. The heart is normal in size. Bones/joints: There is mild kyphosis of the thoracic spine with a moderate compression of one of the upper thoracic vertebra which is chronic. IMPRESSION: Prominent pleural thickening left lateral thorax and extending posteriorly. There has been some progression since 2019 which may be progressive scarring. To exclude any possibility of significant pathology recommend CT of the chest for further evaluation. Electronically signed by: Buck Houston On 01/18/2020 19:16:32 PM
[2020-01-18 19:31] LABS: ALBUMIN 3.1 GM/DL (3.2-5.2); ALT/SGPT 18 U/L (12-78); BILIRUBIN,DIRECT < 0.1 MG/DL (0.0-0.2); BILIRUBIN,TOTAL 0.4 MG/DL (0.2-1.0); BLOOD UREA NITROGEN 18 MG/DL (7-18); CALCIUM LEVEL 9.1 MG/DL (8.5-10.1); CARBON DIOXIDE LEVEL 30 MEQ/L (21-32); CHLORIDE LEVEL 106 MEQ/L (98-107); CK-MB VALUE MASS 2.2 NG/ML (<3.6); CPK CREATINE PHOSPHOKINASE 78 U/L (39-308); CREATININE FOR GFR 0.84 MG/DL (0.70-1.30); GLOMERULAR FILTRATION RATE > 60.0 (>56); GLUCOSE, FASTING 73 MG/DL (70-100); MB/CK RELATIVE INDEX 2.82 (< OR =4); NT-PRO BNP 41 PG/ML (<125); POTASSIUM SERUM 4.4 MEQ/L (3.5-5.1); SODIUM LEVEL 136 MEQ/L (136-145); TOTAL PROTEIN 7.5 GM/DL (6.4-8.2); TROPONIN I < 0.02 NG/ML (< 0.10)
--- NOTE | 2020-01-18 19:32 | REPVR ---
PROCEDURE INFORMATION: Exam: US Duplex Lower Extremity Veins, Bilateral Exam date and time: 01/18/2020 7:23 PM Age: 49 years old Clinical indication: Edema, localized; Lower extremity, bilateral; Additional info: Bilateral lower leg swelling TECHNIQUE: Imaging protocol: Real-time duplex ultrasound of the extremities with 2-D murphy scale, color Doppler flow and spectral waveform analysis with image documentation. Complete exam focused on the bilateral lower extremity veins. COMPARISON: No relevant prior studies available. FINDINGS: Right deep veins: Unremarkable. The common femoral, femoral, proximal profunda femoral and popliteal veins are patent without thrombus. Normal Doppler waveforms. Normal compressibility and/or augmentation response. Right superficial veins: Saphenofemoral junction is patent without thrombus. Left deep veins: Unremarkable. The common femoral, femoral, proximal profunda femoral and popliteal veins are patent without thrombus. Normal Doppler waveforms. Normal compressibility and/or augmentation response. Left superficial veins: Saphenofemoral junction is patent without thrombus. Soft tissues: Unremarkable. IMPRESSION: No evidence of deep vein thrombosis. Electronically signed by: Buck Houston On 01/18/2020 19:32:14 PM
[2020-01-18] MEDS ORDERED: ISOVUE-370 76% 100ML VIAL As Ordered ONE (19:51)
--- NOTE | 2020-01-18 20:58 | REPVR ---
PROCEDURE INFORMATION: Exam: CT Chest With Contrast Exam date and time: 01/18/2020 8:03 PM Age: 49 years old Clinical indication: Other: Further evaluate pleural thickening TECHNIQUE: Imaging protocol: Computed tomography of the chest with intravenous contrast. 3D rendering (Not supervised by radiologist): MIP and/or 3D reconstructed images were created by the technologist. Radiation optimization: All CT scans at this facility use at least one of these dose optimization techniques: automated exposure control; mA and/or kV adjustment per patient size (includes targeted exams where dose is matched to clinical indication); or iterative reconstruction. Contrast material: ISOVUE 370; Contrast volume: 75 ml; Contrast route: INTRAVENOUS (IV); COMPARISON: CR Chest, 2 view PA, Lat 01/18/2020 6:18 PM FINDINGS: Pleural space: There is severe pleural thickening right lower posterior thorax along with scarring. There is severe posterior pleural thickening at the left lower thorax but more than the right. This is suggestive of scarring. Prior CT examinations of 2015 in 2016 have been requested to further evaluate these areas. Heart: The heart is top-normal in size and there is no pericardial effusion. Pulmonary arteries: There is opacification of the pulmonary arteries with no evidence of pulmonary embolus. Aorta: There is opacification of the aorta which appears intact. Lymph nodes: Unremarkable. No enlarged lymph nodes. Bones/joints: There is a 4 cm in transverse dimension by 2 cm in thickness destructive change of bone involving the superior left side of the manubrium. This is very suspicious for destructive metastatic lesion of bone. It would also be possible that the changes of the manubrium are related to previous trauma with bone resorption/old complex fracture. Is there any history injury to this location?. There is soft tissue prominence which may be the result of scarring or soft tissue neoplasm. A primary bone lesion could also give this appearance and considerations would include plasmacytoma, fractured area of fibrous dysplasia. It would be important for the patient have a bone scan and a PET scan. Laboratory analysis to rule out myeloma would be important as well. There is periosteal reaction along the lower aspect of the left scapula which is suggestive of previous periosteal injury. There is a moderate compression of the superior endplate of L1 with prominent linear sclerosis. This is probably secondary to old trauma. There is a moderate compression of T5. IMPRESSION: 1. Severe plate like pleural thickening right and left lower thorax and posterior in location. Thickening is more lobulated and greater on the left. This may very well be scarring that is greater on the left. Old CTs have been requested to compare. 2. There is a 4 cm x 4 cm x 2 cm in thickness area of destructive change of bone superior left manubrium. Soft tissue density associated with this. This could represent a destructive metastatic lesion. If there is a history of trauma to this area a non healed comminuted fracture is possible as well. Primary lesion such is a plasmacytoma or fractured area of fibrous dysplasia all considerations. Recommend bone scan, PET scan and laboratory workup for myeloma. 3. Periosteal reaction along the inferior margin of the left scapula may be the result previous injury and healing fracture. 4. Compression of T5 and the superior endplate of L1. Electronically signed by: Buck Houston On 01/18/2020 20:57:57 PM
[2020-01-18 21:13] VITALS: BP 127/75
[2020-01-18] MEDS ORDERED: LASI20TA3 PO (21:15)
--- NOTE | 2020-01-19 13:43 | ED PDOC ---
Post-Departure Follow-Up ct chest fazed to karly stout for fu Tanya Hernandez MD Jan 19, 2020 13:43
--- NOTE | 2020-01-24 21:01 | ECGEPIP ---
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
== END 2020-01-18 21:19 | disposition home or self-care (01) ==
LOC: M ED 17:17
DX: R60.9 Edema, unspecified (principal); R00.1 Bradycardia, unspecified; I10 Essential (primary) hypertension; E78.5 Hyperlipidemia, unspecified; M79.7 Fibromyalgia; F17.200 Nicotine dependence, unspecified, uncomplicated; Z79.899 Other long term (current) drug therapy
CPT/HCPCS: 36415; 71046; 71260; 80048; 80076; 82550; 82553; 83880; 84443; 85025; 93005; 93970; 99284; Q9967

== ENCOUNTER 2020-03-01 16:27 | Emergency (ER) | payer OTHER ==
[~2020-03-01] VITALS: Ht 185.4 cm; Wt 91.8 kg
[~2020-03-01 16:27] MED LIST changes: -CALC3OIN TOP; -GABA-845 PO; -HYDR25OIN TOP; -IBUP-1022 PO; -LISI10TA4 PO; -RISP2TAB3 PO; -hydrocortisone cream TOP
[2020-03-01 16:28] VITALS: BP 104/70
[2020-03-01] MEDS ORDERED: IBUP-1022 PO (16:53)
[2020-03-01] MEDS ORDERED: hydrocortisone cream TOP (16:53)
[2020-03-01] MEDS ORDERED: GABA-845 PO (16:53)
[2020-03-01] MEDS ORDERED: METH10CO PO (16:53)
[2020-03-01] MEDS ORDERED: LISI10TA4 PO (16:53)
[2020-03-01] MEDS ORDERED: RISP2TAB3 PO (16:53)
[2020-03-01] MEDS ORDERED: CALC3OIN TOP (17:44)
[2020-03-01] MEDS ORDERED: HYDR25OIN TOP (17:44)
== END 2020-03-01 17:54 | disposition home or self-care (01) ==
LOC: M ED 16:27
DX: L13.9 Bullous disorder, unspecified (principal); I10 Essential (primary) hypertension; F17.210 Nicotine dependence, cigarettes, uncomplicated; Z79.899 Other long term (current) drug therapy

== ENCOUNTER → 2020-03-01 | Outpatient (CLI) | payer OTHER ==
[~2020-03-01] MED LIST changes: +CALC3OIN TOP; +GABA-845 PO; +HYDR25OIN TOP; +IBUP-1022 PO; +LASI20TA3 PO; +LISI10TA4 PO; +RISP2TAB3 PO; +hydrocortisone cream TOP
[2020-03-01 16:01] LABS: MEAN CORPUSCULAR HEMOGLOBIN 26.4 pg (27.0-33.0); MEAN CORPUSCULAR HGB CONC 30.6 g/dl (32.0-36.5); MEAN CORPUSCULAR VOLUME 86.3 fl (80.0-96.0); PLATELET COUNT, AUTOMATED 313 10^3/uL (150-450); RED BLOOD COUNT 4.17 10^6/uL (4.30-6.10); WHITE BLOOD COUNT 7.8 10^3/uL (4.0-10.0)
[2020-03-01 16:32] LABS: ALBUMIN 3.2 GM/DL (3.2-5.2); ALT/SGPT 18 U/L (12-78); BILIRUBIN,TOTAL 0.2 MG/DL (0.2-1.0); BLOOD UREA NITROGEN 18 MG/DL (7-18); CALCIUM LEVEL 8.8 MG/DL (8.5-10.1); CARBON DIOXIDE LEVEL 29 MEQ/L (21-32); CHLORIDE LEVEL 104 MEQ/L (98-107); CREATININE FOR GFR 0.91 MG/DL (0.70-1.30); GLOMERULAR FILTRATION RATE > 60.0 (>56); GLUCOSE, FASTING 81 MG/DL (70-100); POTASSIUM SERUM 4.4 MEQ/L (3.5-5.1); SODIUM LEVEL 136 MEQ/L (136-145); TOTAL PROTEIN 7.4 GM/DL (6.4-8.2)
[2020-03-01 16:46] LABS: HEPATITIS B SURFACE ANTIGEN NEGATIVE (NEGATIVE)
[2020-03-01 17:15] LABS: HIV 1&2 SCREEN CENTAUR NEGATIVE (NEGATIVE)
[2020-03-01 17:24] LABS: HEPATITIS C VIRUS ABY INDEX 7.9 INDEX (<0.8)
--- NOTE | 2020-03-02 11:58 | ECGEPIP ---
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
== END ==
LOC: M LAB 15:09
PROVIDERS: ATTEND Family Medicine
DX: F11.10 Opioid abuse, uncomplicated (principal); R00.1 Bradycardia, unspecified

== ENCOUNTER → 2020-03-05 | Outpatient (CLI) | payer OTHER ==
[~2020-03-05] MED LIST changes: +CALC3OIN TOP; +GABA-845 PO; +HYDR25OIN TOP; +IBUP-1022 PO; +LISI10TA4 PO; +RISP2TAB3 PO; +hydrocortisone cream TOP
== END ==
LOC: M LAB 14:42
PROVIDERS: ATTEND Family Medicine
DX: F11.10 Opioid abuse, uncomplicated (principal)
CPT/HCPCS: 36415; G0480

== ENCOUNTER → 2020-03-06 | Outpatient (CLI) | payer OTHER | LOC: M LAB 09:26 | PROVIDERS: ATTEND Family Medicine | DX: F11.90 Opioid use, unspecified, uncomplicated (principal) | CPT/HCPCS: 36415; G0480 ==

== ENCOUNTER 2022-07-03 22:34 | Inpatient (IN) | payer MEDICAID, OTHER ==
[~2022-07-03] VITALS: Ht 185.4 cm; Wt 85.7 kg
[~2022-07-03 22:34] MED LIST changes: -AMIT10TA PO; +AMIT10TA7 PO; +FAMO10TA50 PO; -FAMO1TAB25 PO; +GABA-283 PO; -GABA-845 PO; +LEVO1TAB39 PO; -LEVO500T3 PO; -LISI-538 PO; +LISI10TA22 PO; -LISI10TA4 PO; +LISI20TA33 PO; -LISI40TA PO; +LISI40TA4 PO; +METH-1177 PO; -METH10TA2 PO; +MIRT-60 PO; -REME30TA PO; +RISP-7; +RISP-7 PO; +RISP-9 PO; -RISP0.5T3; -RISP0.5T3 PO; -RISP2TAB3 PO
[2022-07-04] MEDS ORDERED: LORazepam 0.5 MG TAB PO ONE (00:50)
[2022-07-04] MEDS ORDERED: QUEtiapine FUMARATE 100 MG TAB PO ONE (02:00)
[2022-07-04] MEDS ORDERED: GABA800T4 PO (05:39)
[2022-07-04] MEDS ORDERED: ANOR1AER PO (05:39)
[2022-07-04] MEDS ORDERED: HYDR50TA70 PO (05:39)
[2022-07-04] MEDS ORDERED: QUET100T2 PO (05:39)
[2022-07-04] MEDS ORDERED: CLON-412 PO (05:39)
[2022-07-04] MEDS ORDERED: BUPR450T PO (05:39)
[2022-07-04] MEDS ORDERED: ATIV1TAB10 PO (05:39)
[2022-07-04] MEDS ORDERED: HOME MED LIST COMPLETE! XX SCH (05:40)
[2022-07-04] MEDS ORDERED: hydrOXYzine 50 MG TAB PO PRN ×2 (08:30→09:45)
[2022-07-04] MEDS ORDERED: LORazepam 0.5 MG TAB PO PRN ×2 (08:30→09:45)
[2022-07-04] MEDS ORDERED: GABAPENTIN 400MG CAP PO SCH (09:00)
[2022-07-04] MEDS ORDERED: buPROPion **XL** TABLET 150MG (WELLBUTRIN XL) PO SCH ×2 (09:00)
[2022-07-04] MEDS ORDERED: MAALOX 30 ML SUSP *UDC PO PRN (09:45)
[2022-07-04] MEDS ORDERED: OLANZapine ORAL DISINTEGRATING TAB 5MG PO PRN (09:45)
[2022-07-04] MEDS ORDERED: ACETAMINOPHEN TAB 650MG DOSE (2X325MG) PO PRN (09:45)
[2022-07-04] MEDS ORDERED: MOM 30ML SUSPENSION UDC PO PRN (09:45)
[2022-07-04 10:40] VITALS: BP 130/78
[2022-07-04] MEDS: cloNIDine 0.1MG TABLET PO SCH ×3 (13:00→20:27)
[2022-07-04] MEDS: GABAPENTIN 400MG CAP PO SCH ×2 (15:43→20:28)
[2022-07-04] MEDS: NICOTINE 21MG/24HR 1 EA TRANSDERMAL TD SCH (17:08)
[2022-07-04 18:44] VITALS: BP 137/80
[2022-07-04] MEDS: QUEtiapine FUMARATE 100 MG TAB PO SCH (20:28)
[2022-07-04] MEDS: LORazepam 0.5 MG TAB PO PRN (20:29)
[2022-07-04] MEDS: QUEtiapine FUMARATE 25 MG TAB PO SCH (20:31)
[2022-07-04] MEDS ORDERED: QUEtiapine FUMARATE 100 MG TAB PO SCH ×2 (21:00)
[2022-07-05] MEDS: LORazepam 0.5 MG TAB PO PRN ×3 (05:39→20:07)
[2022-07-05 06:20] VITALS: BP 101/61
[2022-07-05] MEDS: cloNIDine 0.1MG TABLET PO SCH ×4 (08:49→20:05)
[2022-07-05] MEDS: buPROPion **XL** TABLET 150MG (WELLBUTRIN XL) PO SCH (08:49)
[2022-07-05] MEDS: GABAPENTIN 400MG CAP PO SCH ×3 (08:50→20:05)
[2022-07-05] MEDS: NICOTINE 21MG/24HR 1 EA TRANSDERMAL TD SCH (08:52)
[2022-07-05 18:55] VITALS: BP 111/76
[2022-07-05] MEDS: traZODone 50 MG TAB PO PRN (20:04)
[2022-07-05] MEDS: QUEtiapine FUMARATE 25 MG TAB PO SCH (20:05)
[2022-07-05] MEDS: QUEtiapine FUMARATE 100 MG TAB PO SCH (20:05)
[2022-07-06] MEDS: LORazepam 0.5 MG TAB PO PRN ×3 (05:17→18:03)
[2022-07-06 06:33] VITALS: BP 97/52
[2022-07-06] MEDS: GABAPENTIN 400MG CAP PO SCH ×3 (08:03→20:09)
[2022-07-06] MEDS: cloNIDine 0.1MG TABLET PO SCH ×4 (08:03→20:09)
[2022-07-06] MEDS: NICOTINE 21MG/24HR 1 EA TRANSDERMAL TD SCH (08:04)
[2022-07-06] MEDS: buPROPion **XL** TABLET 150MG (WELLBUTRIN XL) PO SCH (08:04)
[2022-07-06 16:52] VITALS: BP 113/57
[2022-07-06] MEDS: QUEtiapine FUMARATE 100 MG TAB PO SCH (20:09)
[2022-07-06] MEDS: QUEtiapine FUMARATE 25 MG TAB PO SCH (20:09)
[2022-07-06] MEDS: traZODone 50 MG TAB PO PRN (22:55)
[2022-07-07] MEDS: LORazepam 0.5 MG TAB PO PRN ×2 (06:53→19:03)
[2022-07-07] MEDS: cloNIDine 0.1MG TABLET PO SCH ×5 (08:19→20:18)
[2022-07-07] MEDS: GABAPENTIN 400MG CAP PO SCH ×3 (08:20→20:16)
[2022-07-07] MEDS: buPROPion **XL** TABLET 150MG (WELLBUTRIN XL) PO SCH (08:20)
[2022-07-07] MEDS: NICOTINE 21MG/24HR 1 EA TRANSDERMAL TD SCH (08:21)
[2022-07-07] MEDS: LIDOCAINE 5% (LIDODERM) PATCH TD SCH (10:32)
[2022-07-07 16:34] VITALS: BP 90/50
[2022-07-07] MEDS: QUEtiapine FUMARATE 100 MG TAB PO SCH (20:16)
[2022-07-07] MEDS: QUEtiapine FUMARATE 25 MG TAB PO SCH (20:17)
[2022-07-07] MEDS: traZODone 50 MG TAB PO PRN (20:17)
[2022-07-08] MEDS: LORazepam 0.5 MG TAB PO PRN ×2 (06:12→15:59)
[2022-07-08 06:34] VITALS: BP 105/53
[2022-07-08] MEDS: NICOTINE 21MG/24HR 1 EA TRANSDERMAL TD SCH (07:54)
[2022-07-08] MEDS: buPROPion **XL** TABLET 150MG (WELLBUTRIN XL) PO SCH (07:54)
[2022-07-08] MEDS: LIDOCAINE 5% (LIDODERM) PATCH TD SCH (07:55)
[2022-07-08] MEDS: GABAPENTIN 400MG CAP PO SCH ×3 (07:55→20:06)
[2022-07-08] MEDS: cloNIDine 0.1MG TABLET PO SCH ×4 (09:00→22:10)
[2022-07-08 16:45] VITALS: BP 129/73
[2022-07-08] MEDS: QUEtiapine FUMARATE 100 MG TAB PO SCH (20:06)
[2022-07-08] MEDS: traZODone 50 MG TAB PO PRN (20:06)
[2022-07-08] MEDS: QUEtiapine FUMARATE 25 MG TAB PO SCH (20:06)
[2022-07-09] MEDS: LORazepam 0.5 MG TAB PO PRN ×2 (05:59→14:00)
[2022-07-09 06:31] VITALS: BP 108/61
[2022-07-09] MEDS: buPROPion **XL** TABLET 150MG (WELLBUTRIN XL) PO SCH (08:07)
[2022-07-09] MEDS: cloNIDine 0.1MG TABLET PO SCH ×4 (08:08→20:22)
[2022-07-09] MEDS: GABAPENTIN 400MG CAP PO SCH ×3 (08:09→20:22)
[2022-07-09] MEDS: LIDOCAINE 5% (LIDODERM) PATCH TD SCH (08:10)
[2022-07-09] MEDS: NICOTINE 21MG/24HR 1 EA TRANSDERMAL TD SCH (08:11)
[2022-07-09] MEDS ORDERED: ONDANSETRON 4MG TAB PO PRN (09:40)
[2022-07-09] MEDS ORDERED: CYCLOBENZAPRINE 10MG TABLET PO PRN (09:40)
[2022-07-09] MEDS ORDERED: LORazepam 2 MG TAB PO PRN (09:40)
[2022-07-09] MEDS ORDERED: IBUPROFEN 600MG TAB PO PRN (09:40)
[2022-07-09 17:41] VITALS: BP 104/60
[2022-07-09] MEDS: traZODone 50 MG TAB PO PRN (20:22)
[2022-07-09] MEDS: QUEtiapine FUMARATE 25 MG TAB PO SCH (20:22)
[2022-07-09] MEDS: QUEtiapine FUMARATE 100 MG TAB PO SCH (20:22)
[2022-07-10] MEDS: LORazepam 0.5 MG TAB PO PRN (06:09)
[2022-07-10 06:24] VITALS: BP 103/57
[2022-07-10] MEDS: buPROPion **XL** TABLET 150MG (WELLBUTRIN XL) PO SCH (08:38)
[2022-07-10] MEDS: GABAPENTIN 400MG CAP PO SCH ×3 (08:38→21:38)
[2022-07-10] MEDS: cloNIDine 0.1MG TABLET PO SCH ×4 (08:40→21:00)
[2022-07-10] MEDS: LIDOCAINE 5% (LIDODERM) PATCH TD SCH (08:43)
[2022-07-10] MEDS: NICOTINE 21MG/24HR 1 EA TRANSDERMAL TD SCH (08:47)
[2022-07-10] MEDS ORDERED: LORazepam 0.5 MG TAB PO PRN (09:00)
[2022-07-10 16:55] VITALS: BP 88/58
[2022-07-10] MEDS: QUEtiapine FUMARATE 25 MG TAB PO SCH (21:38)
[2022-07-10] MEDS: traZODone 50 MG TAB PO PRN (21:38)
[2022-07-10] MEDS: QUEtiapine FUMARATE 100 MG TAB PO SCH (21:38)
[2022-07-11 06:48] VITALS: BP 98/60
[2022-07-11] MEDS ORDERED: LORazepam 0.5 MG TAB PO PRN (09:00)
[2022-07-11] MEDS: cloNIDine 0.1MG TABLET PO SCH ×4 (09:00→20:18)
[2022-07-11] MEDS: LIDOCAINE 5% (LIDODERM) PATCH TD SCH (09:08)
[2022-07-11] MEDS: NICOTINE 21MG/24HR 1 EA TRANSDERMAL TD SCH (09:08)
[2022-07-11] MEDS: GABAPENTIN 400MG CAP PO SCH ×3 (09:08→20:18)
[2022-07-11] MEDS: buPROPion **XL** TABLET 150MG (WELLBUTRIN XL) PO SCH (09:08)
[2022-07-11 17:12] VITALS: BP 108/58
[2022-07-11] MEDS: QUEtiapine FUMARATE 100 MG TAB PO SCH (20:18)
[2022-07-11] MEDS: QUEtiapine FUMARATE 25 MG TAB PO SCH (20:18)
[2022-07-11] MEDS: traZODone 50 MG TAB PO PRN (20:19)
[2022-07-12 06:46] VITALS: BP 113/63
[2022-07-12] MEDS: cloNIDine 0.1MG TABLET PO SCH ×4 (07:55→20:35)
[2022-07-12] MEDS: buPROPion **XL** TABLET 150MG (WELLBUTRIN XL) PO SCH (07:58)
[2022-07-12] MEDS: GABAPENTIN 400MG CAP PO SCH ×3 (07:58→20:34)
[2022-07-12] MEDS: LIDOCAINE 5% (LIDODERM) PATCH TD SCH (07:58)
[2022-07-12] MEDS: NICOTINE 21MG/24HR 1 EA TRANSDERMAL TD SCH (07:59)
[2022-07-12 16:52] VITALS: BP 133/66
[2022-07-12] MEDS: traZODone 50 MG TAB PO PRN (20:34)
[2022-07-12] MEDS: QUEtiapine FUMARATE 25 MG TAB PO SCH (20:35)
[2022-07-12] MEDS: QUEtiapine FUMARATE 100 MG TAB PO SCH (20:35)
[2022-07-13 07:07] VITALS: BP 104/56
[2022-07-13] MEDS: buPROPion **XL** TABLET 150MG (WELLBUTRIN XL) PO SCH (08:22)
[2022-07-13] MEDS: GABAPENTIN 400MG CAP PO SCH ×3 (08:22→20:01)
[2022-07-13] MEDS: LIDOCAINE 5% (LIDODERM) PATCH TD SCH (08:26)
[2022-07-13] MEDS: NICOTINE 21MG/24HR 1 EA TRANSDERMAL TD SCH (08:27)
[2022-07-13] MEDS: cloNIDine 0.1MG TABLET PO SCH ×4 (08:27→20:01)
[2022-07-13 18:36] VITALS: BP 115/57
[2022-07-13] MEDS: traZODone 50 MG TAB PO PRN (20:01)
[2022-07-13] MEDS: QUEtiapine FUMARATE 100 MG TAB PO SCH (20:01)
[2022-07-13] MEDS: QUEtiapine FUMARATE 25 MG TAB PO SCH (20:01)
[2022-07-14 06:10] VITALS: BP 119/63
[2022-07-14] MEDS: LIDOCAINE 5% (LIDODERM) PATCH TD SCH (08:05)
[2022-07-14] MEDS: GABAPENTIN 400MG CAP PO SCH (08:06)
[2022-07-14] MEDS: cloNIDine 0.1MG TABLET PO SCH (08:06)
[2022-07-14] MEDS: buPROPion **XL** TABLET 150MG (WELLBUTRIN XL) PO SCH (08:06)
[2022-07-14 08:07] VITALS: BP 104/56
[2022-07-14] MEDS: NICOTINE 21MG/24HR 1 EA TRANSDERMAL TD SCH (08:08)
[2022-07-14 08:17] VITALS: BP 104/56
[2022-07-14] MEDS ORDERED: ANOR1AER PO (10:58)
[2022-07-14] MEDS ORDERED: QUET100T2 PO (10:58)
[2022-07-14] MEDS ORDERED: QUET1TAB17 PO (10:58)
[2022-07-14] MEDS ORDERED: GABA800T4 PO (10:58)
[2022-07-14] MEDS ORDERED: LISI10TA22 PO (10:58)
[2022-07-14] MEDS ORDERED: BUPR450T PO (10:58)
[2022-07-14] MEDS ORDERED: LIDO5TD TD (10:58)
[2022-07-14] MEDS ORDERED: NICO21PAT TD (10:58)
== END 2022-07-14 12:21 | disposition home or self-care (01) | DRG 756 ==
LOC: M ED 22:34 → M ED INP 07-04 09:43 → M PSY 07-04 10:47
PROVIDERS: ADMIT Psychiatry & Neurology Psychiatry; ATTEND Psychiatry & Neurology Psychiatry
DX: F41.8 Other specified anxiety disorders (principal); I10 Essential (primary) hypertension; F43.10 Post-traumatic stress disorder, unspecified; F15.94 Other stimulant use, unspecified with stimulant-induced mood disorder; F11.94 Opioid use, unspecified with opioid-induced mood disorder; M79.7 Fibromyalgia; M54.50 Low back pain, unspecified; R45.850 Homicidal ideations; M25.561 Pain in right knee; F17.210 Nicotine dependence, cigarettes, uncomplicated; M19.90 Unspecified osteoarthritis, unspecified site; Z76.5 Malingerer [conscious simulation]; Z20.822 Contact with and (suspected) exposure to COVID-19; Z63.0 Problems in relationship with spouse or partner; Z79.899 Other long term (current) drug therapy